=== PATIENT | female | born 1930 ===

== ENCOUNTER 2016-08-26 15:39 | Inpatient (IN) | payer MEDICARE, MEDICAID ==
[2016-08-26 15:40] VITALS: BMI 27.4
--- NOTE | 2016-08-26 16:14 | ED PDOC ---
HPI: General Adult Time Seen by Provider: 08/26/16 15:56 Chief Complaint (Nursing): Lower Extremity Problem/Injury Chief Complaint (Provider): leg swelling and redness History Per: Patient History/Exam Limitations: no limitations Additional Complaint(s): 86yo female of leg swelling and redness to bilateral legs for 1 week. Patient uses O2 at home. No fever. She has nausea but no vomit or chest pain. Taking Eliquis & Lasix PMD Jameszel Past Medical History Reviewed: Historical Data, Nursing Documentation, Vital Signs Vital Signs: Last Vital Signs Temp 98.1 F 08/28/16 08:07 Pulse 72 08/28/16 08:07 Resp 20 08/28/16 08:07 BP 148/68 08/28/16 08:07 Pulse Ox 99 08/28/16 08:07 - Medical History PMH: Anxiety, Asthma, Atrial Fibrillation, Bronchitis, CAD, Cardia Arrhythmia, COPD, Emphysema, Fractures (Left femur), HTN, Hyperthyroidism (subtotal thyroidectomy), Peripheral Edema, Pneumonia Denies: Arthritis, CHF, HIV, Hypercholesterolemia, Hypothyroidism, Chronic Kidney Disease, Rheumatoid Arthritis - Surgical History Surgical History: Appendectomy, Cholecystectomy, Pacemaker - Family History Family History: States: Unknown Family Hx - Home Medications Home Medications: Ambulatory Orders Medication Instructions Recorded Ammonium Lactate 12% [Lac-Hydrin 1 appl TOP BID 08/26/16 12% Lotion (225 g)] Apixaban [Eliquis] 2.5 mg PO BID 08/26/16 Brimonidine 0.15% [Alphagan P 1 drop LEFTEYE BID 08/26/16 0.15% Opht] Clotrimazole 1% [Lotrimin AF 1%] 1 appl TOP BID 08/26/16 Diclofenac Sodium [Voltaren] 1 appl TOP BID PRN 08/26/16 Dorzolamide 2% [Trusopt] 1 drop LEFTEYE TID 08/26/16 Fluticasone/Salmeterol 250/50 1 puff IH Q12H 08/26/16 [Advair Diskus 250/50] Folic Acid [Folic Acid] 1 mg PO DAILY 08/26/16 Furosemide [Lasix] 20 mg PO DAILY 08/26/16 Ipratropium 0.02% [Atrovent] 2.5 ml IH QID PRN 08/26/16 Levalbuterol Tartrate [Xopenex Hfa] 2 puff IH Q4H PRN 08/26/16 Levalbuterol [Xopenex] 3 ml IH TID PRN 08/26/16 Multivitamin with Minerals 1 tab PO DAILY 08/26/16 [Bee-Zee] Omeprazole [Omeprazole] 20 mg PO DAILY 08/26/16 Travoprost [Travatan Z] 1 drop LEFTEYE HS 08/26/16 Triamterene/Hydrochlorothiazid 1 cap PO DAILY 08/26/16 [Triamterene-Hctz 37.5-25 mg Cp] amLODIPine [Norvasc] 5 mg PO DAILY 08/26/16 traMADol/Acetaminophen [Ultracet 1 tab PO Q6H PRN 08/26/16 37.5/325 mg] - Allergies Allergies/Adverse Reactions: Allergies Allergy/AdvReac Type Severity Reaction Status Date / Time codeine Allergy DIZZINESS Verified 06/25/16 15:55 iodine Allergy SHORTNESS Verified 06/25/16 15:55 OF BREATH lidocaine Allergy RASH Verified 06/25/16 15:55 Sulfa (Sulfonamide Allergy RASH Verified 06/25/16 15:55 Antibiotics) levofloxacin [From Levaquin] AdvReac PALPITATION Verified 06/25/16 15:55 S anesthesia Allergy SHORTNESS Uncoded 06/25/16 15:55 OF BREATH Review of Systems ROS Statement: Except As Marked, All Systems Reviewed And Found Negative Constitutional: Negative for: Fever Cardiovascular: Negative for: Chest Pain Gastrointestinal: Positive for: Nausea. Negative for: Vomiting Physical Exam - Reviewed Nursing Documentation Reviewed: Yes Vital Signs Reviewed: Yes - Physical Exam Appears: Positive for: Well, Non-toxic, No Acute Distress Head Exam: Positive for: ATRAUMATIC, NORMAL INSPECTION, NORMOCEPHALIC Skin: Positive for: Warm, Dry Eye Exam: Positive for: EOMI, PERRL Cardiovascular/Chest: Positive for: Regular Rate, Rhythm Respiratory: Positive for: Wheezing (occasional). Negative for: Rales, Rhonchi Gastrointestinal/Abdominal: Positive for: Soft, Hernia. Negative for: Tenderness, Guarding, Rebound Extremity: Positive for: Other (Bilateral lower extremity erythema from knees to feet. +small 0.5cm wound with small amount of discharge with on lateral aspect of left martínez) Neurologic/Psych: Positive for: Alert, Oriented - Laboratory Results Result Diagrams: 08/27/16 06:05 08/27/16 06:05 - ECG O2 Sat by Pulse Oximetry: 99 (RA) Pulse Ox Interpretation: Normal - Radiology X-Ray: Interpreted by Me, Viewed By Me X-Ray Interpretation: No Acute Disease, COPD, Cardiomegaly Medical Decision Making Medical Decision Makin Impression bilateral leg cellulitis, stasis dermatitis plan -labs -reassess Disposition - Clinical Impression Clinical Impression: Bilateral lower leg cellulitis, COPD exacerbation - Patient ED Disposition Is Patient to be Admitted: Yes Discussed With : Jim Mock Doctor Will See Patient In The: ED Counseled Patient/Family Regarding: Studies Performed, Diagnosis - Disposition Disposition Time: 18:00 Condition: FAIR - Pt Status Changed To: Hospital Disposition Of: Inpatient - Admit Certification Admit to Inpatient:: After my assessment, the patient will require hospitalization for at least two midnights. This is because of the severity of symptoms shown, intensity of services needed, and/or the medical risk in this patient being treated as an outpatient. - POA Present On Arrival: Pressure Ulcer Location Of Wound: left lower leg Additional Comments - Additional Comments Additional Comments: Scribe Attestation: Documented by Ganga Nettles acting as a scribe for Cheri Armijo MD. Scribe Attestation: All medical record entries made by the Scribe were at my direction and personally dictated by me. I have reviewed the chart and agree that the record accurately reflects my personal performance of the history, physical exam, medical decision making, and the department course for this patient. I have also personally directed, reviewed, and agree with the discharge instructions and disposition.
[2016-08-26 16:50] LABS: BASO # 0.1 K/uL (0.0-0.2); EOS # 0.4 K/uL (0.0-0.7); EOS % 6.6 % (0.0-4.0); HEMATOCRIT 31.5 % (34.0-47.0); LYMPH # 0.7 K/uL (1.0-4.3); LYMPH % 10.7 % (20.0-40.0); MEAN CELL VOLUME 87.5 fl (81.0-99.0); MEAN CORPUSCULAR HEMOGLOBIN 26.6 pg (27.0-31.0); MEAN CORPUSCULAR HGB CONC 30.4 g/dL (33.0-37.0); MEAN PLATELET VOLUME 8.8 fl (7.2-11.7); MONO # 1.1 K/uL (0.0-0.8); MONO % 17.7 % (0.0-10.0); RED CELL DISTRIBUTION WIDTH 16.1 % (11.5-14.5); WHITE BLOOD COUNT 6.3 K/uL (4.8-10.8)
[2016-08-26 17:00] LABS: BLOOD UREA NITROGEN 12 mg/dl (7-17); CHLORIDE 82 mmol/L (98-107); GFR AFRICAN-AMERICAN > 60; GLUCOSE,RANDOM 91 mg/dL (65-105); POTASSIUM 3.4 MMOL/L (3.6-5.0); SODIUM 141 mmol/l (132-148)
[2016-08-26 17:13] LABS: CARBON DIOXIDE 52 mmol/L (22-30)
[2016-08-26 17:49] LABS: ABG ALLEN TEST YES; ARTERIAL BLOOD GAS HCO3 50.7 mmol/L (21-28); ARTERIAL BLOOD GAS O2 CAPACITY 12.9 mL/dL (16-24); ARTERIAL BLOOD GAS O2 CONTENT 12.8 ML/dL (15-23); ARTERIAL BLOOD GAS PH 7.36 (7.35-7.45); ARTERIAL BLOOD GAS PO2 92 mm/Hg (80-100); ARTERIAL BLOOD HGB O2 SAT 94.4 % (95.0-98.0); CARBOXYHEMOGLOBIN 1.9 % (0.5-1.5); METHEMOGLOBIN 2.6 % (0.0-3.0)
[2016-08-26] MEDS ORDERED: Albuterol-Ipratrop 3 mg / 0.5 (3 ml) UD INH STA (17:53)
[2016-08-26] MEDS ORDERED: Vancomycin 1 g Inj ONE (18:03)
[2016-08-26] MEDS ORDERED: Albuterol-Ipratrop 3 mg / 0.5 (3 ml) UD ONE (18:03)
--- NOTE | 2016-08-26 18:43 | CP.PCM.HP ---
History of Present Illness - History of Present Illness History of Present Illness: 86 yo female with history of COPD, AFib with pacemaker, CAD, HTN, GERD and Chronic Leg Edema secondary to venous stasis came in because of marked swelling and intense redness of both legs (look like cooked lobster) since one week ago. Admitted some discomfort because of the swelling. Denied fever or chills. Also denied chest pain or SOB although she reported feeling SOB at home frequently which was her norm or baseline. Present on Admission - Present on Admission Any Indicators Present on Admission: No History of DVT/PE: No History of Uncontrolled Diabetes: No Urinary Catheter: No Decubitus Ulcer Present: No Review of Systems - Review of Systems All systems: reviewed and no additional remarkable complaints except (aside from those mentioned above, 12 point system review were negative by me) Past Patient History - Infectious Disease Hx of Infectious Diseases: None - Tetanus Immunizations Tetanus Immunization: Unknown - Past Medical History & Family History Past Medical History?: Yes - Past Social History Smoking Status: Never Smoked Chewing Tobacco Use: No Cigar Use: No Alcohol: None Drugs: Denies Home Situation {Lives}: Alone - CARDIAC Hx Atrial Fibrillation: Yes Hx Cardia Arrhythmia: Yes Hx Congestive Heart Failure: No Hx Hypercholesterolemia: No Hx Hypertension: Yes Hx Pacemaker: Yes Hx Peripheral Edema: Yes - PULMONARY Hx Asthma: Yes Hx Bronchitis: Yes Hx Chronic Obstructive Pulmonary Disease (COPD): Yes Hx Emphysema: Yes Hx Pneumonia: Yes - NEUROLOGICAL Hx Neurological Disorder: No - HEENT Hx Glaucoma: Yes Other/Comment: Hx Retina surgery Right Eye - RENAL Hx Chronic Kidney Disease: No - ENDOCRINE/METABOLIC Hx Hyperthyroidism: Yes (subtotal thyroidectomy) Hx Hypothyroidism: No - HEMATOLOGICAL/ONCOLOGICAL Hx Human Immunodeficiency Virus (HIV): No - INTEGUMENTARY Hx Cellulitis: Yes Other/Comment: Chronic venous insufficiency of both lower extremities with ulceration in the right pretibial area - MUSCULOSKELETAL/RHEUMATOLOGICAL Hx Arthritis: No Hx Fractures: Yes (Left femur) Hx Rheumatoid Arthritis: No - GASTROINTESTINAL Hx Gastroesophageal Reflux: Yes - GENITOURINARY/GYNECOLOGICAL Hx Genitourinary Disorders: No - PSYCHIATRIC Hx Anxiety: Yes - SURGICAL HISTORY Hx Appendectomy: Yes Hx Cholecystectomy: Yes - ANESTHESIA Hx Anesthesia: Yes Hx Anesthesia Reactions: Yes Hx Malignant Hyperthermia: No Meds Allergies/Adverse Reactions: Allergies Allergy/AdvReac Type Severity Reaction Status Date / Time codeine Allergy DIZZINESS Verified 06/25/16 15:55 iodine Allergy SHORTNESS Verified 06/25/16 15:55 OF BREATH lidocaine Allergy RASH Verified 06/25/16 15:55 Sulfa (Sulfonamide Allergy RASH Verified 06/25/16 15:55 Antibiotics) levofloxacin [From Levaquin] AdvReac PALPITATION Verified 06/25/16 15:55 S anesthesia Allergy SHORTNESS Uncoded 06/25/16 15:55 OF BREATH Physical Exam - Constitutional Appears: No Acute Distress - Head Exam Head Exam: ATRAUMATIC - Eye Exam Eye Exam: absent: Scleral icterus - ENT Exam ENT Exam: Mucous Membranes Moist - Neck Exam Neck exam: Negative for: Meningismus - Respiratory Exam Respiratory Exam: Decreased Breath Sounds, Rales. absent: Wheezes, Respiratory Distress - Cardiovascular Exam Cardiovascular Exam: REGULAR RHYTHM, +S1, +S2 - GI/Abdominal Exam GI & Abdominal Exam: Soft. absent: Tenderness - Rectal Exam Rectal Exam: Deferred - Extremities Exam Extremities exam: Negative for: normal inspection (markedly swollen and very intensely red legs, non-tender and warm to touch) - Back Exam Back exam: absent: tenderness - Neurological Exam Neurological exam: Alert, Oriented x3 - Psychiatric Exam Psychiatric exam: Normal Affect - Skin Skin Exam: Dry, Erythema, Intact, Warm Results - Vital Signs Recent Vital Signs: Last Vital Signs Temp 98.7 F 08/26/16 15:42 Pulse 72 08/26/16 15:42 Resp 20 08/26/16 15:42 BP 148/72 08/26/16 17:28 Pulse Ox 99 08/26/16 16:19 - Labs Result Diagrams: 08/26/16 16:30 08/26/16 16:30 Assessment & Plan (1) Cellulitis of lower extremity Status: Acute Comment: admit in telemetry. blood culture x 2. Zosyn 3.375gm IV q 6hrs. redness on both legs probably secondary to hypersensitivity since eosinophil suddenly went up from 0.7 in 06/16/2016 to 6.6 today. repeat CBC with diferrential in am (2) Hypercarbia Status: Acute Comment: continue Bipap on low setting. repeat ABG in am (3) COPD (chronic obstructive pulmonary disease) Status: Chronic Priority: High Comment: stable. resume home meds. pulmonary consult with Dr Mack (4) Eosinophilia Status: Acute Comment: as discussed above the extreme redness of both legs probably secondary to hypersensitivity from exposure since eosinophil shoot up to 6.6. received 125mg of SoluMedrol IV in the ER. continue SoluMedrol 40mg IV daily (5) DVT prophylaxis Status: Acute Priority: Medium Comment: on Apixaban for AFib
[2016-08-26 18:53] LABS: PARTIAL THROMBOPLASTIN TIME 32.9 SECONDS (23.3-32.5)
[2016-08-26] MEDS ORDERED: methylPREDNISolone 40 MG in Sodium Chloride 0.9% 50 ML IV STA (19:26)
[2016-08-26] MEDS ORDERED: TRAMADOL PO PRN (19:32)
[2016-08-26] MEDS ORDERED: Patient's Own Med (Levalbuterol Tartrate [Xopenex Hfa] 2 PUFF) IH PRN (19:32)
[2016-08-26] MEDS ORDERED: ACETAMINOPHEN PO PRN (19:32)
[2016-08-26] MEDS ORDERED: Patient's Own Med (Travoprost [Travatan Z] 1 DROP) LEFTEYE SCH (22:00)
[2016-08-26 23:02] LABS: ABG ALLEN TEST YES; ARTERIAL BLOOD GAS HCO3 52.1 mmol/L (21-28); ARTERIAL BLOOD GAS O2 CAPACITY 13.5 mL/dL (16-24); ARTERIAL BLOOD GAS O2 CONTENT 13.5 ML/dL (15-23); ARTERIAL BLOOD GAS PH 7.39 (7.35-7.45); ARTERIAL BLOOD GAS PO2 104 mm/Hg (80-100); ARTERIAL BLOOD HGB O2 SAT 95.9 % (95.0-98.0); CARBOXYHEMOGLOBIN 2.5 % (0.5-1.5); HHB 0.2 % (0.0-5.0); METHEMOGLOBIN 1.4 % (0.0-3.0)
[2016-08-27] MEDS: Ampicillin/Sulbactam 1.5 GM in Sodium Chloride 0.9% 100 ML IVPB SCH ×5 (00:39→22:45)
[2016-08-27 04:50] LABS: ABG ALLEN TEST YES; ARTERIAL BLOOD GAS HCO3 51.8 mmol/L (21-28); ARTERIAL BLOOD GAS MODE BiPAP; ARTERIAL BLOOD GAS O2 CAPACITY 13.2 mL/dL (16-24); ARTERIAL BLOOD GAS O2 CONTENT 13.1 ML/dL (15-23); ARTERIAL BLOOD GAS PH 7.42 (7.35-7.45); ARTERIAL BLOOD GAS PO2 107 mm/Hg (80-100); ARTERIAL BLOOD HGB O2 SAT 95.8 % (95.0-98.0); HHB 0.7 % (0.0-5.0); METHEMOGLOBIN 1.4 % (0.0-3.0)
[2016-08-27 06:39] LABS: BASO % 0.5 % (0.0-2.0); EOS % 0.2 % (0.0-4.0); HEMATOCRIT 30.4 % (34.0-47.0); LYMPH # 0.3 K/uL (1.0-4.3); LYMPH % 12.2 % (20.0-40.0); MEAN CELL VOLUME 86.1 fl (81.0-99.0); MEAN CORPUSCULAR HEMOGLOBIN 26.1 pg (27.0-31.0); MEAN CORPUSCULAR HGB CONC 30.3 g/dL (33.0-37.0); MEAN PLATELET VOLUME 8.6 fl (7.2-11.7); MONO # 0.1 K/uL (0.0-0.8); MONO % 2.3 % (0.0-10.0); NEUT % 84.8 % (50.0-75.0); NRBC % 0.1 % (0.0-0.0); RED CELL DISTRIBUTION WIDTH 16.2 % (11.5-14.5); WHITE BLOOD COUNT 2.4 K/uL (4.8-10.8)
[2016-08-27] MEDS: Fluticasone-Salmeterol 250-50mcg Diskus IH SCH ×3 (06:44→22:44)
[2016-08-27 06:49] LABS: BLOOD UREA NITROGEN 13 mg/dl (7-17); CALCIUM 8.4 mg/dL (8.4-10.2); CHLORIDE 84 mmol/L (98-107); GFR AFRICAN-AMERICAN > 60; GLUCOSE,RANDOM 125 mg/dL (65-105); POTASSIUM 3.7 MMOL/L (3.6-5.0); SODIUM 143 mmol/l (132-148)
[2016-08-27 07:07] LABS: CARBON DIOXIDE 48 mmol/L (22-30)
[2016-08-27] MEDS: Ipratropium 0.02% Inhal Soln (0.5 mg/2.5 ml) UD IH PRN ×2 (08:47→18:12)
[2016-08-27] MEDS: Levalbuterol 1.25 MG/3 ML Inhal Soln UD IH PRN ×2 (08:47→18:12)
[2016-08-27] MEDS ORDERED: MULTIVITAMIN WITH MINERALS PO SCH (09:00)
[2016-08-27] MEDS ORDERED: methylPREDNISolone 40 MG in Sodium Chloride 0.9% 50 ML IV SCH (09:00)
[2016-08-27] MEDS ORDERED: hydroCHLOROthiazide-Triamterene 25 mg-37.5 mg Cap UD PO SCH (09:00)
[2016-08-27] MEDS ORDERED: Patient's Own Med (Brimonidine 0.15% [Alphagan P 0.15% Opht] 1 DROP) LEFTEYE SCH (09:00)
--- NOTE | 2016-08-27 09:17 | US ---
PROCEDURE: Bilateral lower extremity venous duplex Doppler. HISTORY: bilateral leg swelling COMPARISON: None available. TECHNIQUE: Bilateral common femoral, superficial femoral, popliteal and posterior tibial veins were evaluated. Flow was assessed with color Doppler, compressibility, assessment of phasic flow and augmentation response. FINDINGS: COMMON FEMORAL VEIN: Right CFV: Unremarkable. Left CFV: Unremarkable. SUPERFICIAL FEMORAL VEIN: Right SFV: Unremarkable. Left SFV: Unremarkable. POPLITEAL VEIN: Right Popliteal: Unremarkable. Left Popliteal: Unremarkable. POSTERIOR TIBIAL VEIN: Right PTV: Unremarkable. Left PTV: Unremarkable. OTHER FINDINGS: None. IMPRESSION: No evidence of deep venous thrombosis.
[2016-08-27] MEDS: Dorzolamide 2% Ophth Soln OU SCH ×3 (10:12→17:15)
--- NOTE | 2016-08-27 10:12 | RAD ---
HISTORY: Shortness of breath COMPARISON: 06/16/2016 FINDINGS: LUNGS: There is mild pulmonary venous congestion. PLEURA: No significant pleural effusion identified, no pneumothorax apparent. CARDIOVASCULAR: There is persistent severe cardiomegaly. There is stable position of left-sided unipolar transvenous permanent pacing device. OSSEOUS STRUCTURES: No significant abnormalities. VISUALIZED UPPER ABDOMEN: Normal. OTHER FINDINGS: None. IMPRESSION: No active pulmonary disease. Persistent severe cardiomegaly and mild pulmonary venous congestion.
[2016-08-27] MEDS: Brimonidine 0.2% 50 DROP/5 ML BOTTLE OS SCH ×2 (10:13→17:14)
[2016-08-27] MEDS: Multivitamin With Minerals Tab PO SCH (10:17)
[2016-08-27] MEDS: Pantoprazole 40 mg EC Tab PO SCH (10:18)
--- NOTE | 2016-08-27 14:05 | CP.PCM.CON ---
History of Present Illness - History of Present Illness History of Present Illness: This patient is well-known to me from the outpatient setting as well as prior hospitalizations. 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 She has been found to be hypercapnic chronically and on her last hospitalization she was placed on NIPPV using BiPAP ventilator. She was discharged to subacute rehabilitation and was sent home from there with a BiPAP unit for home use along with her home oxygen. She presented to the emergency room now with increased swelling of both lower extremities and significant erythema suggesting cellulitis. Workup she was found to have a PaCO2 of over 100 although she was well oxygenated and had a pH of 7.36. Her chest x-ray at this time shows no acute infiltrates. She has been placed on BiPAP ventilation in the hospital and feels improved when seen today. She denied any chest pain or productive cough at home. She was unaware of fevers and denied chills. There was no history of hemoptysis. Past Patient History - Infectious Disease Hx of Infectious Diseases: None - Tetanus Immunizations Tetanus Immunization: Unknown - Past Medical History & Family History Past Medical History?: Yes Pertinent Family History: Lung cancer, GI malignancy. - Past Social History Smoking Status: Never Smoked Chewing Tobacco Use: No Cigar Use: No Alcohol: None Drugs: Denies Home Situation {Lives}: Alone - CARDIAC Hx Cardiac Disorders: Yes Hx Atrial Fibrillation: Yes Hx Hypertension: Yes Hx Pacemaker: Yes Hx Peripheral Edema: Yes - PULMONARY Hx Respiratory Disorders: Yes Hx Asthma: Yes Hx Bronchitis: Yes Hx Chronic Obstructive Pulmonary Disease (COPD): Yes Hx Pneumonia: Yes - NEUROLOGICAL Hx Neurological Disorder: No - HEENT Hx HEENT Problems: Yes Hx Glaucoma: Yes Other/Comment: Hx Retina surgery Right Eye - RENAL Hx Chronic Kidney Disease: No - ENDOCRINE/METABOLIC Hx Endocrine Disorders: Yes Hx Hyperthyroidism: Yes - HEMATOLOGICAL/ONCOLOGICAL Hx Blood Disorders: No Hx Human Immunodeficiency Virus (HIV): No - INTEGUMENTARY Hx Dermatological Problems: Yes Hx Cellulitis: Yes Other/Comment: Chronic venous insufficiency of both lower extremities with ulceration in the right pretibial area - MUSCULOSKELETAL/RHEUMATOLOGICAL Hx Musculoskeletal Disorders: Yes Hx Falls: Yes Hx Fractures: Yes - GASTROINTESTINAL Hx Gastrointestinal Disorders: Yes Hx Gastroesophageal Reflux: Yes - GENITOURINARY/GYNECOLOGICAL Hx Genitourinary Disorders: No - PSYCHIATRIC Hx Psychophysiologic Disorder: Yes Hx Anxiety: Yes Hx Substance Use: No - SURGICAL HISTORY Hx Surgeries: Yes Hx Appendectomy: Yes Hx Cholecystectomy: Yes - ANESTHESIA Hx Anesthesia: Yes Hx Anesthesia Reactions: Yes Hx Malignant Hyperthermia: No Meds Allergies/Adverse Reactions: Allergies Allergy/AdvReac Type Severity Reaction Status Date / Time codeine Allergy DIZZINESS Verified 06/25/16 15:55 iodine Allergy SHORTNESS Verified 06/25/16 15:55 OF BREATH lidocaine Allergy RASH Verified 06/25/16 15:55 Sulfa (Sulfonamide Allergy RASH Verified 06/25/16 15:55 Antibiotics) levofloxacin [From Levaquin] AdvReac PALPITATION Verified 06/25/16 15:55 S anesthesia Allergy SHORTNESS Uncoded 06/25/16 15:55 OF BREATH - Medications Medications: Current Medications Acetaminophen (Tylenol 325mg Tab) 650 mg PO Q6 PRN PRN Reason: Pain, moderate (4-7) Amlodipine Besylate (Norvasc) 5 mg PO DAILY [facility] Last Admin: 08/27/16 10:18 Dose: 5 mg Apixaban (Eliquis) 2.5 mg PO BID [facility] PRN Reason: Protocol Last Admin: 08/27/16 10:21 Dose: 2.5 mg Brimonidine Tartrate (Alphagan 0.2% Opht) 1 drop OS BID [facility] Last Admin: 08/27/16 10:13 Dose: 1 unit Dorzolamide HCl (Trusopt) 1 drop OU TID [facility] Last Admin: 08/27/16 10:12 Dose: 1 unit Folic Acid (Folic Acid) 1 mg PO DAILY [facility] Last Admin: 08/27/16 10:21 Dose: 1 mg Furosemide (Lasix) 20 mg PO DAILY [facility] Last Admin: 08/27/16 10:19 Dose: 20 mg Methylprednisolone 40 mg/ (Sodium Chloride) 50 mls @ 100 mls/hr IV DAILY [facility] Last Admin: 08/27/16 10:14 Dose: 100 mls/hr Ampicillin Sodium/Sulbactam (Sodium 1.5 gm/ Sodium Chloride) 100 mls @ 100 mls/ hr IVPB Q6 [facility] Last Admin: 08/27/16 10:14 Dose: 100 mls/hr Ipratropium [place] (Atrovent) 0.5 mg IH QID PRN PRN Reason: Shortness of Breath Last Admin: 08/27/16 08:47 Dose: 0.5 mg Latanoprost (Xalatan Opht) 1 drop OS [facility] Levalbuterol HCl (Xopenex) 1.25 mg IH TID PRN PRN Reason: Shortness of Breath Last Admin: 08/27/16 08:47 Dose: 1.25 mg Multivitamins/Minerals (Therapeutic-M Tab) 1 tab PO DAILY [facility] Last Admin: 08/27/16 10:17 Dose: 1 tab Pantoprazole Sodium (Protonix Ec Tab) 40 mg PO DAILY [facility] Last Admin: 08/27/16 10:18 Dose: 40 mg Fluticasone/Salmeterol (Advair Diskus 250/50) 1 puff IH Q12H [facility] Last Admin: 08/27/16 06:44 Dose: Not Given Tramadol HCl (Ultram) 50 mg PO Q6 PRN PRN Reason: Pain, moderate (4-7) Triamterene/HCTZ (Dyazide 25 Mg-37.5 Mg) 1 cap PO DAILY [facility] Last Admin: 08/27/16 10:22 Dose: 1 cap Physical Exam - Additional Findings Additional findings: Bilateral lower extremity edema++ and erythema with increased warmth. No open wounds on either LE, no weeping drainage. No cyanosis or clubbing. No palpable lymphadenopathy. Pharynx is pink and moist w/o exudate. Neck is supple and trachea is midline. No visible JVD, +scar from prior excision of cervical LN. No dullness on chest percussion, increased AP diameter of thorax. Breath sounds are present bilaterally, diminished. E phase is prolonged with few E wheezes bilaterally. Dry lower lobe rales, few, present posteriorly. Heart sounds are distant and rhythm regular. Abdomen is soft and non-tender with NABS. Results - Vital Signs Recent Vital Signs: Last Vital Signs Temp 99.4 F 08/27/16 12:14 Pulse 72 08/27/16 12:14 Resp 18 08/27/16 12:14 BP 130/57 L 08/27/16 12:14 Pulse Ox 96 08/27/16 12:14 - Labs Result Diagrams: 08/31/16 06:00 08/31/16 06:00 Labs: Laboratory Results - last 24 hr 08/26/16 08/27/16 08/27/16 22:45 04:50 06:05 WBC 2.4 L D RBC 3.54 L Hgb 9.2 L Hct 30.4 L MCV 86.1 MCH 26.1 L MCHC 30.3 L RDW 16.2 H Plt Count 197 MPV 8.6 Neut % (Auto) 84.8 H Lymph % (Auto) 12.2 L [place] % (Auto) 2.3 Eos % (Auto) 0.2 Baso % (Auto) 0.5 Neut # 2.0 Lymph # 0.3 L [place] # 0.1 Eos # 0.0 Baso # 0.0 pCO2 108 H* 99 H* pO2 104 H 107 H HCO3 52.1 H* 51.8 H* ABG pH 7.39 7.42 ABG Total CO2 68.7 H 67.2 H ABG O2 Saturation 99.8 H 99.3 H ABG O2 Content 13.5 L 13.1 L ABG Base Excess 34.8 H 34.5 H ABG Hemoglobin 9.9 L 9.6 L ABG Carboxyhemoglobin 2.5 H 2.0 H POC ABG HHb (Measured) 0.2 0.7 ABG Methemoglobin 1.4 1.4 ABG O2 Capacity 13.5 L 13.2 L Gilberto Test Yes Yes A-a O2 Difference 46.0 54.0 Hgb O2 Saturation 95.9 95.8 Vent Mode Bipap FiO2 40.0 40.0 Inspiratory BiPAP 10 18 Expiratory BiPAP 5 8 Blood Gas Comments Avea bipap i/10 e/5 Crit Value Called To Josue romeo Crit Value Called By 162 Mj Crit Value Read Back Y Y Blood Gas Notified Time 2300 450 Sodium 143 Potassium 3.7 Chloride 84 L Carbon Dioxide 48 H* Anion Gap 15 BUN 13 Creatinine 0.8 Est GFR ( Amer) > 60 Est GFR (Non-Af Amer) > 60 Random Glucose 125 H Calcium 8.4 Assessment & Plan (1) Asthma exacerbation Status: Acute Priority: High (2) COPD exacerbation Status: Acute Priority: High (3) Acute and chronic respiratory failure with hypercapnia Status: Acute Priority: High (4) Bilateral lower leg cellulitis Status: Acute Priority: High (5) Pulmonary hypertension Status: Chronic Priority: High (6) Venous insufficiency of both lower extremities Status: Chronic Priority: Medium (7) Glaucoma Status: Chronic Priority: Medium - Assessment and Plan (Free Text) Plan: NIPPV using BiPAP ventilator with mask. Supplemental oxygen as needed. Aerosol therapy. Parenteral corticosteroids. Antibiotics. Consider adding acetazolamide. Monitor electrolytes and renal function. - Date & Time Date: 08/27/16 Time: 14:05
--- NOTE | 2016-08-27 14:24 | CP.PCM.PN ---
Subjective - Date & Time of Evaluation Date of Evaluation: 08/27/16 Time of Evaluation: 13:00 - Subjective Subjective: Pt seen and examined. Claimed she felt fine except for the redness and swelling of her legs. Objective - Vital Signs/Intake and Output Vital Signs (last 24 hours): Temp Pulse Resp BP Pulse Ox 99.4 F 72 18 130/57 L 96 08/27/16 12:14 08/27/16 12:14 08/27/16 12:14 08/27/16 12:14 08/27/16 12:14 - Medications Medications: Current Medications Acetaminophen (Tylenol 325mg Tab) 650 mg PO Q6 PRN PRN Reason: Pain, moderate (4-7) Amlodipine Besylate (Norvasc) 5 mg PO DAILY [facility] Last Admin: 08/27/16 10:18 Dose: 5 mg Apixaban (Eliquis) 2.5 mg PO BID [facility] PRN Reason: Protocol Last Admin: 08/27/16 10:21 Dose: 2.5 mg Brimonidine Tartrate (Alphagan 0.2% Opht) 1 drop OS BID [facility] Last Admin: 08/27/16 10:13 Dose: 1 unit Dorzolamide HCl (Trusopt) 1 drop OU TID [facility] Last Admin: 08/27/16 10:12 Dose: 1 unit Folic Acid (Folic Acid) 1 mg PO DAILY [facility] Last Admin: 08/27/16 10:21 Dose: 1 mg Furosemide (Lasix) 20 mg PO DAILY [facility] Last Admin: 08/27/16 10:19 Dose: 20 mg Methylprednisolone 40 mg/ (Sodium Chloride) 50 mls @ 100 mls/hr IV DAILY [facility] Last Admin: 08/27/16 10:14 Dose: 100 mls/hr Ampicillin Sodium/Sulbactam (Sodium 1.5 gm/ Sodium Chloride) 100 mls @ 100 mls/ hr IVPB Q6 [facility] Last Admin: 08/27/16 10:14 Dose: 100 mls/hr Ipratropium [place] (Atrovent) 0.5 mg IH QID PRN PRN Reason: Shortness of Breath Last Admin: 08/27/16 08:47 Dose: 0.5 mg Latanoprost (Xalatan Opht) 1 drop OS [facility] Levalbuterol HCl (Xopenex) 1.25 mg IH TID PRN PRN Reason: Shortness of Breath Last Admin: 08/27/16 08:47 Dose: 1.25 mg Multivitamins/Minerals (Therapeutic-M Tab) 1 tab PO DAILY [facility] Last Admin: 08/27/16 10:17 Dose: 1 tab Pantoprazole Sodium (Protonix Ec Tab) 40 mg PO DAILY [facility] Last Admin: 08/27/16 10:18 Dose: 40 mg Fluticasone/Salmeterol (Advair Diskus 250/50) 1 puff IH Q12H [facility] Last Admin: 08/27/16 06:44 Dose: Not Given Tramadol HCl (Ultram) 50 mg PO Q6 PRN PRN Reason: Pain, moderate (4-7) Triamterene/HCTZ (Dyazide 25 Mg-37.5 Mg) 1 cap PO DAILY [facility] Last Admin: 08/27/16 10:22 Dose: 1 cap - Labs Labs: 08/27/16 06:05 08/27/16 06:05 PT 12.0 SECONDS (9.6-11.2) H 08/26/16 16:30 INR 1.15 (0.92-1.08) H 08/26/16 16:30 APTT 32.9 SECONDS (23.3-32.5) H 08/26/16 16:30 - Constitutional Appears: No Acute Distress - Head Exam Head Exam: absent: ATRAUMATIC - Eye Exam Eye Exam: absent: Scleral icterus - ENT Exam ENT Exam: Mucous Membranes Moist - Neck Exam Neck Exam: absent: Meningismus - Respiratory Exam Respiratory Exam: Decreased Breath Sounds, Rales. absent: Wheezes, Respiratory Distress - Cardiovascular Exam Cardiovascular Exam: REGULAR RHYTHM, +S1, +S2 - GI/Abdominal Exam GI & Abdominal Exam: Soft. absent: Tenderness - Rectal Exam Rectal Exam: Deferred - Extremities Exam Extremities Exam: Pedal Edema (swollen and red). absent: Calf Tenderness - Neurological Exam Neurological Exam: Alert, Oriented x3 - Psychiatric Exam Psychiatric exam: Normal Affect - Skin Skin Exam: Dry, Erythema, Intact, Warm Assessment and Plan (1) Cellulitis of lower extremity Status: Acute (2) Hypercarbia Status: Acute (3) COPD (chronic obstructive pulmonary disease) Status: Chronic (4) Eosinophilia Status: Acute (5) DVT prophylaxis Status: Acute - Assessment and Plan (Free Text) Plan: 86 yo female with history of COPD, AFib with pacemaker, CAD, HTN, GERD and Chronic Leg Edema secondary to venous stasis came in because of marked swelling and intense redness of both legs (look like red lobster). (1) Cellulitis of lower extremity blood culture x 2 pending Zosyn 3.375gm IV q 6hrs instead of Vanco because of its association with red men syndrome redness on both legs probably secondary to hypersensitivity since eosinophil suddenly went up from 0.7 in 06/16/2016 to 6.6 today. repeat CBC with diferrential in am (2) Hypercarbia PCO2 down to 99 continue Bipap on low setting. (3) COPD (chronic obstructive pulmonary disease) stable. resume home meds. pulmonary consult with Dr Mack (4) Eosinophilia resolved, now PCO2 just below 100 continue SoluMedrol 40mg IV daily (5) DVT prophylaxis on Apixaban for AFib
[2016-08-27] MEDS ORDERED: Vitamin A/D oint 60G TP PRN (17:10)
--- NOTE | 2016-08-27 17:32 | CARD ---
APPROVED REPORT EXAM: Two-dimensional and M-mode echocardiogram with Doppler and color Doppler. Other Information Quality : GoodRhythm : Pacemaker INDICATION Elevated Pro BNP Surgery/Intervention Pacemaker: 2D DIMENSIONS IVSd1.54 (0.7-1.1cm)LVDd3.82 (3.9-5.9cm) LVOT Diameter1.97 (1.8-2.4cm)PWd1.24 (0.7-1.1cm) IVSs1.62 (0.8-1.2cm)LVDs2.42 (2.5-4.0cm) FS (%) 36.7 %PWs1.36 (0.8-1.2cm) LVEF (%)55.0 (>50%) M-Mode DIMENSIONS Left Atrium (MM)6.25 (2.5-4.0cm)IVSd1.40 (0.7-1.1cm) Aortic Root3.14 (2.2-3.7cm)LVDd4.58 (4.0-5.6cm) Aortic Cusp Exc.1.75 (1.5-2.0cm)PWd1.19 (0.7-1.1cm) IVSs2.31 cmFS (%) 41 % LVDs2.69 (2.0-3.8cm)PWs1.57 cm Aortic Valve AI P 1/2 [id number] Mitral Valve E/A ratio0.0 TDI E/Lateral E'0.0E/Medial E'0.0 Tricuspid Valve TR Peak [id number] [id number] Peak Gr.42mmHg [id number] LEFT VENTRICLE The left ventricle is normal size. There is moderate concentric left ventricular hypertrophy. The left ventricular function is normal. The left ventricular ejection fraction is within the normal range. There is normal LV segmental wall motion. patient in A Fib RIGHT VENTRICLE The right ventricle is mildly dilated. The right ventricle is moderately hypertrophied. The right ventricular systolic function is normal. There is a pacemaker lead in the right ventricle. ATRIA The left atrium is severely dilated. The right atrium is moderately dilated. The atrial septum is aneurysmal. AORTIC VALVE The aortic valve is moderately thickened. There is moderate aortic regurgitation. There is no aortic valvular stenosis. MITRAL VALVE The mitral valve is moderately thickened. There is no mitral valve stenosis. Mitral regurgitation is severe. TRICUSPID VALVE The tricuspid valve is normal in structure There is moderate to severe tricuspid regurgitation. There is moderate pulmonary hypertension. PULMONIC VALVE The pulmonary valve is normal in structure There is moderate pulmonic valvular regurgitation. GREAT VESSELS The aortic root is normal in size. The IVC is normal in size and collapses >50% with inspiration. PERICARDIAL EFFUSION The pericardium appears normal. <Conclusion> The left ventricle is normal size. There is moderate concentric left ventricular hypertrophy. The left ventricular function is normal. The left ventricular ejection fraction is within the normal range. There is moderate aortic regurgitation. Mitral regurgitation is severe. There is moderate to severe tricuspid regurgitation. There is moderate pulmonary hypertension.
--- NOTE | 2016-08-27 18:29 | CARD ---
APPROVED REPORT EKG Measurement Heart [id number] <Conclusion> Ventricular paced rhythm Underlying rhythm is A Fib Abnormal ECG
[2016-08-27] MEDS: Latanoprost 0.005% Opht SOUTION OS SCH (22:44)
[2016-08-28] MEDS: Ampicillin/Sulbactam 1.5 GM in Sodium Chloride 0.9% 100 ML IVPB SCH ×4 (04:34→22:47)
[2016-08-28] MEDS: Levalbuterol 1.25 MG/3 ML Inhal Soln UD IH SCH ×3 (08:21→23:57)
--- NOTE | 2016-08-28 08:21 | CP.PCM.PN ---
Subjective - Date & Time of Evaluation Date of Evaluation: 08/28/16 Time of Evaluation: 08:21 - Subjective Subjective: More comfortable today. Vital signs are stable. Using BiPAP overnight. Erythema and edema of LE's is less. No audible wheezes heard. Breath sounds are decreased bilaterally. Maintain present medical regimen. Objective - Vital Signs/Intake and Output Vital Signs (last 24 hours): Temp Pulse Resp BP Pulse Ox 98.1 F 72 20 148/68 99 08/28/16 08:07 08/28/16 08:07 08/28/16 08:07 08/28/16 08:07 08/28/16 08:07 - Medications Medications: Current Medications Acetaminophen (Tylenol 325mg Tab) 650 mg PO Q6 PRN PRN Reason: Pain, moderate (4-7) Acetazolamide (Diamox 250 Mg Tab) 250 mg PO DAILY [facility] Amlodipine Besylate (Norvasc) 5 mg PO DAILY [facility] Last Admin: 08/27/16 10:18 Dose: 5 mg Apixaban (Eliquis) 2.5 mg PO BID [facility] PRN Reason: Protocol Last Admin: 08/27/16 17:15 Dose: 2.5 mg Brimonidine Tartrate (Alphagan 0.2% Opht) 1 drop OS BID [facility] Last Admin: 08/27/16 17:14 Dose: 1 unit Dorzolamide HCl (Trusopt) 1 drop OU TID [facility] Last Admin: 08/27/16 17:15 Dose: 1 drop Folic Acid (Folic Acid) 1 mg PO DAILY [facility] Last Admin: 08/27/16 10:21 Dose: 1 mg Furosemide (Lasix) 20 mg PO DAILY [facility] Last Admin: 08/27/16 10:19 Dose: 20 mg Ampicillin Sodium/Sulbactam (Sodium 1.5 gm/ Sodium Chloride) 100 mls @ 100 mls/ hr IVPB Q6 [facility] Last Admin: 08/28/16 04:34 Dose: 100 mls/hr Methylprednisolone 30 mg/ (Sodium Chloride) 50 mls @ 100 mls/hr IV DAILY [facility] Latanoprost (Xalatan Opht) 1 drop OS HS [facility] Last Admin: 08/27/16 22:44 Dose: 1 drop Levalbuterol HCl (Xopenex) 1.25 mg IH RQ8 [facility] Multivitamins/Minerals (Therapeutic-M Tab) 1 tab PO DAILY [facility] Last Admin: 08/27/16 10:17 Dose: 1 tab Pantoprazole Sodium (Protonix Ec Tab) 40 mg PO DAILY [facility] Last Admin: 08/27/16 10:18 Dose: 40 mg Fluticasone/Salmeterol (Advair Diskus 250/50) 1 puff IH Q12H [facility] Last Admin: 08/27/16 22:44 Dose: 1 puff Tramadol HCl (Ultram) 50 mg PO Q6 PRN PRN Reason: Pain, moderate (4-7) Vitamin A (Vitamin A&D) 1 applic TP Q8 PRN PRN Reason: Itching / Pruritus - Labs Labs: 08/27/16 06:05 08/27/16 06:05 PT 12.0 SECONDS (9.6-11.2) H 08/26/16 16:30 INR 1.15 (0.92-1.08) H 08/26/16 16:30 APTT 32.9 SECONDS (23.3-32.5) H 08/26/16 16:30
[2016-08-28] MEDS: Ipratropium 0.02% Inhal Soln (0.5 mg/2.5 ml) UD IH PRN (08:22)
[2016-08-28 08:54] LABS: ABG ALLEN TEST YES; ARTERIAL BLOOD GAS HCO3 52.9 mmol/L (21-28); ARTERIAL BLOOD GAS O2 CAPACITY 13.2 mL/dL (16-24); ARTERIAL BLOOD GAS PO2 83 mm/Hg (80-100); ARTERIAL BLOOD HGB O2 SAT 95.3 % (95.0-98.0); CARBOXYHEMOGLOBIN 2.1 % (0.5-1.5); HHB 1.2 % (0.0-5.0); METHEMOGLOBIN 1.4 % (0.0-3.0)
[2016-08-28] MEDS: Fluticasone-Salmeterol 250-50mcg Diskus IH SCH ×2 (09:31→22:50)
[2016-08-28] MEDS: Brimonidine 0.2% 50 DROP/5 ML BOTTLE OS SCH ×2 (09:32→16:58)
[2016-08-28] MEDS: Pantoprazole 40 mg EC Tab PO SCH (09:34)
[2016-08-28] MEDS: Multivitamin With Minerals Tab PO SCH (09:34)
[2016-08-28] MEDS: Dorzolamide 2% Ophth Soln OU SCH ×3 (09:34→16:58)
[2016-08-28 10:11] LABS: HEMATOCRIT 30.3 % (34.0-47.0); MEAN CORPUSCULAR HGB CONC 29.4 g/dL (33.0-37.0); RED CELL DISTRIBUTION WIDTH 16.8 % (11.5-14.5); WHITE BLOOD COUNT 7.6 K/uL (4.8-10.8)
[2016-08-28 10:18] LABS: MEAN CELL VOLUME 88.5 fl (81.0-99.0)
[2016-08-28 10:19] LABS: BLOOD UREA NITROGEN 23 mg/dl (7-17); CHLORIDE 81 mmol/L (98-107); GFR AFRICAN-AMERICAN > 60; POTASSIUM 3.5 MMOL/L (3.6-5.0); SODIUM 142 mmol/l (132-148)
[2016-08-28] MEDS: methylPREDNISolone 30 MG in Sodium Chloride 0.9% 50 ML IV SCH (10:34)
[2016-08-28 10:44] LABS: CALCIUM 8.4 mg/dL (8.4-10.2); GLUCOSE,RANDOM 117 mg/dL (65-105)
[2016-08-28 10:56] LABS: CARBON DIOXIDE 50 mmol/L (22-30)
--- NOTE | 2016-08-28 13:13 | CP.PCM.PN ---
Subjective - Date & Time of Evaluation Date of Evaluation: 08/28/16 Time of Evaluation: 11:00 - Subjective Subjective: Pt seen and examined. Feeling better but requesting that he be allowed to walk around the [address] way. Objective - Vital Signs/Intake and Output Vital Signs (last 24 hours): Temp Pulse Resp BP Pulse Ox 98.2 F 72 20 127/57 L 99 08/28/16 12:18 08/28/16 12:18 08/28/16 12:18 08/28/16 12:18 08/28/16 12:18 - Medications Medications: Current Medications Acetaminophen (Tylenol 325mg Tab) 650 mg PO Q6 PRN PRN Reason: Pain, moderate (4-7) Acetazolamide (Diamox 250 Mg Tab) 250 mg PO DAILY [facility] Amlodipine Besylate (Norvasc) 5 mg PO DAILY [facility] Last Admin: 08/28/16 09:34 Dose: 5 mg Apixaban (Eliquis) 2.5 mg PO BID [facility] PRN Reason: Protocol Last Admin: 08/28/16 09:32 Dose: 2.5 mg Brimonidine Tartrate (Alphagan 0.2% Opht) 1 drop OS BID [facility] Last Admin: 08/28/16 09:32 Dose: 1 unit Dorzolamide HCl (Trusopt) 1 drop OU TID [facility] Last Admin: 08/28/16 09:34 Dose: 1 drop Folic Acid (Folic Acid) 1 mg PO DAILY [facility] Last Admin: 08/28/16 09:33 Dose: 1 mg Furosemide (Lasix) 20 mg PO DAILY [facility] Last Admin: 08/28/16 09:34 Dose: 20 mg Ampicillin Sodium/Sulbactam (Sodium 1.5 gm/ Sodium Chloride) 100 mls @ 100 mls/ hr IVPB Q6 [facility] Last Admin: 08/28/16 09:34 Dose: 100 mls/hr Methylprednisolone 30 mg/ (Sodium Chloride) 50 mls @ 100 mls/hr IV DAILY [facility] Last Admin: 08/28/16 10:34 Dose: 100 mls/hr Latanoprost (Xalatan Opht) 1 drop OS HS [facility] Last Admin: 08/27/16 22:44 Dose: 1 drop Levalbuterol HCl (Xopenex) 1.25 mg IH RQ8 [facility] Last Admin: 08/28/16 08:21 Dose: 1.25 mg Multivitamins/Minerals (Therapeutic-M Tab) 1 tab PO DAILY [facility] Last Admin: 08/28/16 09:34 Dose: 1 tab Pantoprazole Sodium (Protonix Ec Tab) 40 mg PO DAILY [facility] Last Admin: 08/28/16 09:34 Dose: 40 mg Fluticasone/Salmeterol (Advair Diskus 250/50) 1 puff IH Q12H [facility] Last Admin: 08/28/16 09:31 Dose: 1 puff Tramadol HCl (Ultram) 50 mg PO Q6 PRN PRN Reason: Pain, moderate (4-7) Vitamin A (Vitamin A&D) 1 applic TP Q8 PRN PRN Reason: Itching / Pruritus - Labs Labs: 08/28/16 09:45 08/28/16 09:45 PT 12.0 SECONDS (9.6-11.2) H 08/26/16 16:30 INR 1.15 (0.92-1.08) H 08/26/16 16:30 APTT 32.9 SECONDS (23.3-32.5) H 08/26/16 16:30 - Constitutional Appears: No Acute Distress - Head Exam Head Exam: ATRAUMATIC - Eye Exam Eye Exam: absent: Scleral icterus - ENT Exam ENT Exam: Mucous Membranes Moist - Neck Exam Neck Exam: absent: Meningismus - Respiratory Exam Respiratory Exam: absent: Rhonchi, Wheezes, Respiratory Distress - Cardiovascular Exam Cardiovascular Exam: REGULAR RHYTHM, +S1, +S2 - GI/Abdominal Exam GI & Abdominal Exam: Soft. absent: Tenderness - Rectal Exam Rectal Exam: Deferred - Extremities Exam Extremities Exam: Pedal Edema (both legs less swollen and wrinkly; erythema fading) - Neurological Exam Neurological Exam: Alert, Oriented x3 - Psychiatric Exam Psychiatric exam: Normal Affect - Skin Skin Exam: Dry, Erythema, Intact Assessment and Plan (1) Cellulitis of lower extremity Status: Acute (2) Hypercarbia Status: Acute (3) COPD (chronic obstructive pulmonary disease) Status: Chronic (4) Eosinophilia Status: Acute (5) DVT prophylaxis Status: Acute - Assessment and Plan (Free Text) Assessment: 86 yo female with history of COPD, AFib with pacemaker, CAD, HTN, GERD and Chronic Leg Edema secondary to venous stasis came in because of marked swelling and intense redness of both legs (looked like red lobster). (1) Cellulitis of lower extremity blood culture: so far no growth continue Zosyn 3.375gm IV q 6hrs instead of Vanco because of its association with red men syndrome legs less swollen and appeared wrinkly and deflated, erythema fading (2) Hypercarbia PCO2 above 100 again continue Bipap on low setting. (3) COPD (chronic obstructive pulmonary disease) stable. (4) Eosinophilia resolved (5) DVT prophylaxis on Apixaban for AFib
[2016-08-28] MEDS: Latanoprost 0.005% Opht SOUTION OS SCH (22:47)
[2016-08-29] MEDS: Ampicillin/Sulbactam 1.5 GM in Sodium Chloride 0.9% 100 ML IVPB SCH ×4 (04:33→22:40)
[2016-08-29] MEDS: Levalbuterol 1.25 MG/3 ML Inhal Soln UD IH SCH ×3 (08:00→23:30)
[2016-08-29] MEDS: methylPREDNISolone 30 MG in Sodium Chloride 0.9% 50 ML IV SCH (08:51)
[2016-08-29] MEDS: Fluticasone-Salmeterol 250-50mcg Diskus IH SCH ×2 (08:51→19:51)
[2016-08-29] MEDS: Brimonidine 0.2% 50 DROP/5 ML BOTTLE OS SCH ×2 (08:51→16:35)
[2016-08-29] MEDS: Dorzolamide 2% Ophth Soln OU SCH ×3 (08:52→16:35)
[2016-08-29] MEDS: Pantoprazole 40 mg EC Tab PO SCH (08:52)
[2016-08-29] MEDS: Multivitamin With Minerals Tab PO SCH (08:52)
[2016-08-29] MEDS: Potassium Chloride 20 mEq ER Tab PO SCH (09:01)
--- NOTE | 2016-08-29 14:58 | CP.PCM.PN ---
Subjective - Date & Time of Evaluation Date of Evaluation: 08/29/16 Time of Evaluation: 11:00 - Subjective Subjective: Pt seen and examined. Saw sleeping comfortably. When seen again, she claimed she felt alright and asked if she is going home tomorrow. Objective - Vital Signs/Intake and Output Vital Signs (last 24 hours): Temp Pulse Resp BP Pulse Ox 98.2 F 73 18 142/68 100 08/29/16 08:00 08/29/16 08:52 08/29/16 08:00 08/29/16 08:52 08/29/16 08:00 - Medications Medications: Current Medications Acetaminophen (Tylenol 325mg Tab) 650 mg PO Q6 PRN PRN Reason: Pain, moderate (4-7) Acetazolamide (Diamox 250 Mg Tab) 250 mg PO DAILY [facility] Last Admin: 08/29/16 08:52 Dose: 250 mg Amlodipine Besylate (Norvasc) 5 mg PO DAILY [facility] Last Admin: 08/29/16 08:52 Dose: 5 mg Apixaban (Eliquis) 2.5 mg PO BID [facility] PRN Reason: Protocol Last Admin: 08/29/16 08:52 Dose: 2.5 mg Brimonidine Tartrate (Alphagan 0.2% Opht) 1 drop OS BID [facility] Last Admin: 08/29/16 08:51 Dose: 1 unit Dorzolamide HCl (Trusopt) 1 drop OU TID [facility] Last Admin: 08/29/16 12:38 Dose: 1 drop Folic Acid (Folic Acid) 1 mg PO DAILY [facility] Last Admin: 08/29/16 08:53 Dose: 1 mg Furosemide (Lasix) 20 mg PO DAILY [facility] Last Admin: 08/29/16 08:52 Dose: 20 mg Ampicillin Sodium/Sulbactam (Sodium 1.5 gm/ Sodium Chloride) 100 mls @ 100 mls/ hr IVPB Q6 [facility] Last Admin: 08/29/16 09:01 Dose: 100 mls/hr Methylprednisolone 30 mg/ (Sodium Chloride) 50 mls @ 100 mls/hr IV DAILY [facility] Last Admin: 08/29/16 08:51 Dose: 100 mls/hr Latanoprost (Xalatan Opht) 1 drop OS HS [facility] Last Admin: 08/28/16 22:47 Dose: 1 drop Levalbuterol HCl (Xopenex) 1.25 mg IH RQ8 [facility] Last Admin: 08/29/16 08:00 Dose: 1.25 mg Multivitamins/Minerals (Therapeutic-M Tab) 1 tab PO DAILY [facility] Last Admin: 08/29/16 08:52 Dose: 1 tab Pantoprazole Sodium (Protonix Ec Tab) 40 mg PO DAILY [facility] Last Admin: 08/29/16 08:52 Dose: 40 mg Potassium Chloride (K-Dur 20 Meq Er Tab) 20 meq PO DAILY [facility] Last Admin: 08/29/16 09:01 Dose: 20 meq Fluticasone/Salmeterol (Advair Diskus 250/50) 1 puff IH Q12H [facility] Last Admin: 08/29/16 08:51 Dose: 1 puff Tramadol HCl (Ultram) 50 mg PO Q6 PRN PRN Reason: Pain, moderate (4-7) Vitamin A (Vitamin A&D) 1 applic TP Q8 PRN PRN Reason: Itching / Pruritus - Labs Labs: 08/28/16 09:45 08/28/16 09:45 PT 12.0 SECONDS (9.6-11.2) H 08/26/16 16:30 INR 1.15 (0.92-1.08) H 08/26/16 16:30 APTT 32.9 SECONDS (23.3-32.5) H 08/26/16 16:30 - Constitutional Appears: No Acute Distress - Head Exam Head Exam: ATRAUMATIC - Eye Exam Eye Exam: absent: Scleral icterus - ENT Exam ENT Exam: Mucous Membranes Moist - Neck Exam Neck Exam: absent: Meningismus - Respiratory Exam Respiratory Exam: absent: Rhonchi, Wheezes, Respiratory Distress - Cardiovascular Exam Cardiovascular Exam: REGULAR RHYTHM, +S1, +S2 - GI/Abdominal Exam GI & Abdominal Exam: Soft. absent: Tenderness - Rectal Exam Rectal Exam: Deferred - Extremities Exam Extremities Exam: absent: Normal Inspection (legs still red but fading and peeling), Tenderness - Neurological Exam Neurological Exam: Alert, Oriented x3 - Psychiatric Exam Psychiatric exam: Normal Affect - Skin Skin Exam: Dry, Intact Assessment and Plan (1) Cellulitis of lower extremity Status: Acute (2) Hypercarbia Status: Acute (3) COPD (chronic obstructive pulmonary disease) Status: Chronic (4) Eosinophilia Status: Acute (5) DVT prophylaxis Status: Acute - Assessment and Plan (Free Text) Assessment: 86 yo female with history of COPD, AFib with pacemaker, CAD, HTN, GERD and Chronic Leg Edema secondary to venous stasis came in because of marked swelling and intense redness of both legs (looked like red lobster). (1) Cellulitis of lower extremity blood culture: no growth on Zosyn 3.375gm IV q 6hrs instead of Vanco because of its association with red men syndrome legs less swollen and appeared wrinkly and scaly, erythema fading (2) Hypercarbia will repeat ABG in am (3) COPD (chronic obstructive pulmonary disease) stable. (4) Eosinophilia resolved (5) DVT prophylaxis on Apixaban for AFib
[2016-08-29] MEDS: Latanoprost 0.005% Opht SOUTION OS SCH (22:42)
[2016-08-30] MEDS: Ampicillin/Sulbactam 1.5 GM in Sodium Chloride 0.9% 100 ML IVPB SCH ×4 (05:00→22:01)
[2016-08-30 05:05] LABS: BASO % 0.4 % (0.0-2.0); EOS % 0.4 % (0.0-4.0); HEMATOCRIT 31.3 % (34.0-47.0); LYMPH # 0.8 K/uL (1.0-4.3); LYMPH % 10.1 % (20.0-40.0); MEAN CELL VOLUME 88.5 fl (81.0-99.0); MEAN CORPUSCULAR HEMOGLOBIN 26.5 pg (27.0-31.0); MEAN PLATELET VOLUME 9.2 fl (7.2-11.7); MONO # 0.8 K/uL (0.0-0.8); MONO % 11.1 % (0.0-10.0); NEUT # 5.9 K/uL (1.8-7.0); RED CELL DISTRIBUTION WIDTH 16.6 % (11.5-14.5); WHITE BLOOD COUNT 7.6 K/uL (4.8-10.8)
[2016-08-30 05:20] LABS: ABG ALLEN TEST YES; ABG MECHANICAL RATE 12; ARTERIAL BLOOD GAS HCO3 47.1 mmol/L (21-28); ARTERIAL BLOOD GAS MODE BiPAP; ARTERIAL BLOOD GAS O2 CAPACITY 13.1 mL/dL (16-24); ARTERIAL BLOOD GAS PH 7.42 (7.35-7.45); ARTERIAL BLOOD GAS PO2 93 mm/Hg (80-100); ARTERIAL BLOOD HGB O2 SAT 96.2 % (95.0-98.0); CARBOXYHEMOGLOBIN 1.8 % (0.5-1.5); HHB 0.6 % (0.0-5.0); METHEMOGLOBIN 1.4 % (0.0-3.0)
[2016-08-30 05:20] LABS: BLOOD UREA NITROGEN 21 mg/dl (7-17); CALCIUM 8.7 mg/dL (8.4-10.2); CHLORIDE 90 mmol/L (98-107); GFR AFRICAN-AMERICAN > 60; GLUCOSE,RANDOM 104 mg/dL (65-105); POTASSIUM 3.9 MMOL/L (3.6-5.0); SODIUM 141 mmol/l (132-148)
[2016-08-30 05:35] LABS: CARBON DIOXIDE 41 mmol/L (22-30)
[2016-08-30] MEDS: Levalbuterol 1.25 MG/3 ML Inhal Soln UD IH SCH ×2 (07:46→15:40)
[2016-08-30] MEDS: Fluticasone-Salmeterol 250-50mcg Diskus IH SCH ×2 (08:48→19:50)
[2016-08-30] MEDS: Multivitamin With Minerals Tab PO SCH (08:49)
[2016-08-30] MEDS: Pantoprazole 40 mg EC Tab PO SCH (08:49)
[2016-08-30] MEDS: Potassium Chloride 20 mEq ER Tab PO SCH (08:49)
[2016-08-30] MEDS: Dorzolamide 2% Ophth Soln OU SCH ×3 (08:51→16:22)
[2016-08-30] MEDS: Brimonidine 0.2% 50 DROP/5 ML BOTTLE OS SCH ×2 (08:52→16:22)
[2016-08-30] MEDS: methylPREDNISolone 30 MG in Sodium Chloride 0.9% 50 ML IV SCH (08:53)
--- NOTE | 2016-08-30 11:52 | CP.PCM.PN ---
Subjective - Date & Time of Evaluation Date of Evaluation: 08/30/16 Time of Evaluation: 11:50 - Subjective Subjective: Seen in bedside chair. Appears stable, PaCO2 is gradually decreasing. Mentally clear with longstanding hypercapnea, compensated. Continue nocturnal NIPPV. Continue acetazolamide. Dependant edema hes regressed nicely. Still erythematous LE's but no increased warmth. No dullness on chest percussion. No audible wheezing. Few dependant dry rales only. No bronchial breathing or egophony. Heart sounds are distant, regular rhythm. Continue present drug regimen. Solumedrol dc'd, started prednisone. Continue acetazolamide. May be transferred to a regular floor. Objective - Vital Signs/Intake and Output Vital Signs (last 24 hours): Temp Pulse Resp BP Pulse Ox 97.8 F 73 20 155/84 H 96 08/30/16 05:07 08/30/16 11:23 08/30/16 05:07 08/30/16 08:51 08/30/16 05:07 - Medications Medications: Current Medications Acetaminophen (Tylenol 325mg Tab) 650 mg PO Q6 PRN PRN Reason: Pain, moderate (4-7) Acetazolamide (Diamox 250 Mg Tab) 250 mg PO DAILY [facility] Last Admin: 08/30/16 08:49 Dose: 250 mg Amlodipine Besylate (Norvasc) 5 mg PO DAILY [facility] Last Admin: 08/30/16 08:50 Dose: 5 mg Apixaban (Eliquis) 2.5 mg PO BID [facility] PRN Reason: Protocol Last Admin: 08/30/16 08:49 Dose: 2.5 mg Brimonidine Tartrate (Alphagan 0.2% Opht) 1 drop OS BID [facility] Last Admin: 08/30/16 08:52 Dose: 1 drop Dorzolamide HCl (Trusopt) 1 drop OU TID [facility] Last Admin: 08/30/16 08:51 Dose: 1 drop Folic Acid (Folic Acid) 1 mg PO DAILY [facility] Last Admin: 08/30/16 08:50 Dose: 1 mg Furosemide (Lasix) 20 mg PO DAILY [facility] Last Admin: 08/30/16 08:51 Dose: 20 mg Ampicillin Sodium/Sulbactam (Sodium 1.5 gm/ Sodium Chloride) 100 mls @ 100 mls/ hr IVPB Q6 [facility] Last Admin: 08/30/16 05:00 Dose: 100 mls/hr Latanoprost (Xalatan Opht) 1 drop OS HS [facility] Last Admin: 08/29/16 22:42 Dose: 1 drop Levalbuterol HCl (Xopenex) 1.25 mg IH RQ8 [facility] Last Admin: 08/30/16 07:46 Dose: 1.25 mg Multivitamins/Minerals (Therapeutic-M Tab) 1 tab PO DAILY [facility] Last Admin: 08/30/16 08:49 Dose: 1 tab Pantoprazole Sodium (Protonix Ec Tab) 40 mg PO DAILY [facility] Last Admin: 08/30/16 08:49 Dose: 40 mg Potassium Chloride (K-Dur 20 Meq Er Tab) 20 meq PO DAILY [facility] Last Admin: 08/30/16 08:49 Dose: 20 meq Prednisone (Prednisone Tab) 15 mg PO DAILY [facility] Fluticasone/Salmeterol (Advair Diskus 250/50) 1 puff IH Q12H [facility] Last Admin: 08/30/16 08:48 Dose: 1 puff Vitamin A (Vitamin A&D) 1 applic TP Q8 PRN PRN Reason: Itching / Pruritus - Labs Labs: 08/30/16 04:00 08/30/16 04:00 PT 12.0 SECONDS (9.6-11.2) H 08/26/16 16:30 INR 1.15 (0.92-1.08) H 08/26/16 16:30 APTT 32.9 SECONDS (23.3-32.5) H 08/26/16 16:30
--- NOTE | 2016-08-30 13:18 | CP.PCM.PN ---
Subjective - Date & Time of Evaluation Date of Evaluation: 08/30/16 Time of Evaluation: 12:00 - Subjective Subjective: Pt is in good spirits today No fever leg pain very much improved no CP no cough doing well on Oxygen per NC, on Bipap q hs no abd pain Objective - Vital Signs/Intake and Output Vital Signs (last 24 hours): Temp Pulse Resp BP Pulse Ox 97.8 F 73 20 155/84 H 96 08/30/16 05:07 08/30/16 11:23 08/30/16 05:07 08/30/16 08:51 08/30/16 05:07 - Medications Medications: Current Medications Acetaminophen (Tylenol 325mg Tab) 650 mg PO Q6 PRN PRN Reason: Pain, moderate (4-7) Acetazolamide (Diamox 250 Mg Tab) 250 mg PO DAILY [facility] Last Admin: 08/30/16 08:49 Dose: 250 mg Amlodipine Besylate (Norvasc) 5 mg PO DAILY [facility] Last Admin: 08/30/16 08:50 Dose: 5 mg Apixaban (Eliquis) 2.5 mg PO BID [facility] PRN Reason: Protocol Last Admin: 08/30/16 08:49 Dose: 2.5 mg Brimonidine Tartrate (Alphagan 0.2% Opht) 1 drop OS BID [facility] Last Admin: 08/30/16 08:52 Dose: 1 drop Dorzolamide HCl (Trusopt) 1 drop OU TID [facility] Last Admin: 08/30/16 12:08 Dose: 1 drop Folic Acid (Folic Acid) 1 mg PO DAILY [facility] Last Admin: 08/30/16 08:50 Dose: 1 mg Furosemide (Lasix) 20 mg PO DAILY [facility] Last Admin: 08/30/16 08:51 Dose: 20 mg Ampicillin Sodium/Sulbactam (Sodium 1.5 gm/ Sodium Chloride) 100 mls @ 100 mls/ hr IVPB Q6 [facility] Last Admin: 08/30/16 10:05 Dose: 100 mls/hr Latanoprost (Xalatan Opht) 1 drop OS HS [facility] Last Admin: 08/29/16 22:42 Dose: 1 drop Levalbuterol HCl (Xopenex) 1.25 mg IH RQ8 [facility] Last Admin: 08/30/16 07:46 Dose: 1.25 mg Multivitamins/Minerals (Therapeutic-M Tab) 1 tab PO DAILY [facility] Last Admin: 08/30/16 08:49 Dose: 1 tab Pantoprazole Sodium (Protonix Ec Tab) 40 mg PO DAILY [facility] Last Admin: 08/30/16 08:49 Dose: 40 mg Potassium Chloride (K-Dur 20 Meq Er Tab) 20 meq PO DAILY [facility] Last Admin: 08/30/16 08:49 Dose: 20 meq Prednisone (Prednisone Tab) 15 mg PO DAILY [facility] Fluticasone/Salmeterol (Advair Diskus 250/50) 1 puff IH Q12H [facility] Last Admin: 08/30/16 08:48 Dose: 1 puff Vitamin A (Vitamin A&D) 1 applic TP Q8 PRN PRN Reason: Itching / Pruritus - Labs Labs: 08/30/16 04:00 08/30/16 04:00 PT 12.0 SECONDS (9.6-11.2) H 08/26/16 16:30 INR 1.15 (0.92-1.08) H 08/26/16 16:30 APTT 32.9 SECONDS (23.3-32.5) H 08/26/16 16:30 - Constitutional Appears: No Acute Distress - Head Exam Head Exam: NORMAL INSPECTION, NORMOCEPHALIC - Eye Exam Pupil Exam: NORMAL ACCOMODATION - ENT Exam ENT Exam: Mucous Membranes Moist, Normal External Ear Exam - Neck Exam Neck Exam: Full ROM. absent: Meningismus - Respiratory Exam Respiratory Exam: Decreased Breath Sounds, Rhonchi. absent: Accessory Muscle Use, Rales, Wheezes, Respiratory Distress - Cardiovascular Exam Cardiovascular Exam: Irregular Rhythm, +S1, +S2 - GI/Abdominal Exam GI & Abdominal Exam: Soft, Normal Bowel Sounds. absent: Tenderness - Extremities Exam Extremities Exam: Normal Capillary Refill Additional comments: bilat LE swelling, eryuthema, very minimal tenderness - very much improved - Back Exam Back Exam: absent: CVA tenderness (L), CVA tenderness (R), paraspinal tenderness , vertebral tenderness - Neurological Exam Neurological Exam: Alert, Awake, CN II-XII Intact, Oriented x3 Neuro motor strength exam: Left Upper Extremity: 5, Right Upper Extremity: 5, Left Lower Extremity: 5, Right Lower Extremity: 5 - Psychiatric Exam Psychiatric exam: Normal Affect, Normal Mood - Skin Skin Exam: Dry, Normal Color, Warm Assessment and Plan (1) Bilateral lower leg cellulitis Status: Acute (2) COPD exacerbation Status: Acute (3) Acute and chronic respiratory failure with hypercapnia Status: Acute (4) Hypertension Status: Chronic (5) Chronic atrial fibrillation Status: Chronic (6) Chronic diastolic CHF (congestive heart failure) Status: Chronic (7) Pulmonary hypertension Status: Chronic - Assessment and Plan (Free Text) Assessment: 86 y/o lady with hx of Asthma/COPD,A Fib, Chronic Resp Failure - on Home NIPPV, HTN, Diastolic CHF, came in becaues of bilateral LE erythema, pain and swelling. - found to have Cellulitis. Also noted to have elevated [id number] (1) Bilateral lower leg cellulitis Status: Acute clinically improving bilat LE redeness, tenderness and swelling cont IV Unasyn Podiatry consult Blood c/s: no growth after 3 days (2) COPD exacerbation Status: Acute improving IV Solumedrol chhanged to PO Prednisone cont Xopenex neb cont Advair (3) Acute and chronic respiratory failure with hypercapnia Status: Acute elevated Co2 to 113 now improving cont Acetazolomide Pulm: Dr Mack following pt cont Bipap q hs (4) Hypertension Status: Chronic cont Norvasc and Lasix (5) Chronic atrial fibrillation, rate controlled Status: Chronic cont Eliquis (6) Chronic diastolic CHF (congestive heart failure) Status: Chronic cont Lasix Ecfho: normal EF, Pulm HTN, severeTR (7) Pulmonary hypertension, moderate Status: Chronic cont Norvasc
--- NOTE | 2016-08-30 18:35 | CP.PCM.CON ---
History of Present Illness - History of Present Illness History of Present Illness: This is an 86 y/o female who was seen and evaluated at bedside today after request for podiatry consultation for bilateral LE cellulitis/bilateral heel pain. Patient has PMH significant for COPD, Afib with pacemaker, HTN, CAD, GERD and bilateral LE chronic venous stasis. Patient states that when she was initially admitted to the hospital, she had severe edema and erythema to both of her legs. Both symptoms have now been resolving as per the patient. She states that her heels have been hurting since her admission to the hospital. She also complains of dryness to bilateral lower legs and feet. She currently denies any F/C/N/V/SOB/CP. She denies any burning, tingling or numbness to her feet. No other pedal complaints reported at this time. Past Patient History - Infectious Disease Hx of Infectious Diseases: None - Tetanus Immunizations Tetanus Immunization: Unknown - Past Medical History & Family History Past Medical History?: Yes - Past Social History Smoking Status: Never Smoked - CARDIAC Hx Atrial Fibrillation: Yes Hx Cardia Arrhythmia: Yes Hx Congestive Heart Failure: No Hx Hypercholesterolemia: No Hx Hypertension: Yes Hx Pacemaker: Yes Hx Peripheral Edema: Yes - PULMONARY Hx Asthma: Yes Hx Bronchitis: Yes Hx Chronic Obstructive Pulmonary Disease (COPD): Yes Hx Emphysema: Yes Hx Pneumonia: Yes - NEUROLOGICAL Hx Neurological Disorder: No - HEENT Hx HEENT Problems: Yes Hx Glaucoma: Yes Other/Comment: Hx Retina surgery Right Eye - RENAL Hx Chronic Kidney Disease: No - ENDOCRINE/METABOLIC Hx Hyperthyroidism: Yes (subtotal thyroidectomy) Hx Hypothyroidism: No - HEMATOLOGICAL/ONCOLOGICAL Hx Human Immunodeficiency Virus (HIV): No - INTEGUMENTARY Hx Dermatological Problems: Yes Hx Cellulitis: Yes Other/Comment: Chronic venous insufficiency of both lower extremities with ulceration in the right pretibial area - MUSCULOSKELETAL/RHEUMATOLOGICAL Hx Arthritis: No Hx Fractures: Yes (Left femur) Hx Rheumatoid Arthritis: No - GASTROINTESTINAL Hx Gastrointestinal Disorders: Yes Hx Gastroesophageal Reflux: Yes - GENITOURINARY/GYNECOLOGICAL Hx Genitourinary Disorders: No - PSYCHIATRIC Hx Anxiety: Yes - SURGICAL HISTORY Hx Appendectomy: Yes Hx Cholecystectomy: Yes - ANESTHESIA Hx Anesthesia: Yes Hx Anesthesia Reactions: Yes Hx Malignant Hyperthermia: No Meds Allergies/Adverse Reactions: Allergies Allergy/AdvReac Type Severity Reaction Status Date / Time codeine Allergy DIZZINESS Verified 06/25/16 15:55 iodine Allergy SHORTNESS Verified 06/25/16 15:55 OF BREATH lidocaine Allergy RASH Verified 06/25/16 15:55 Sulfa (Sulfonamide Allergy RASH Verified 06/25/16 15:55 Antibiotics) levofloxacin [From Levaquin] AdvReac PALPITATION Verified 06/25/16 15:55 S anesthesia Allergy SHORTNESS Uncoded 06/25/16 15:55 OF BREATH - Medications Medications: Current Medications Acetaminophen (Tylenol 325mg Tab) 650 mg PO Q6 PRN PRN Reason: Pain, moderate (4-7) Acetazolamide (Diamox 250 Mg Tab) 250 mg PO DAILY [facility] Last Admin: 08/30/16 08:49 Dose: 250 mg Amlodipine Besylate (Norvasc) 5 mg PO DAILY [facility] Last Admin: 08/30/16 08:50 Dose: 5 mg Apixaban (Eliquis) 2.5 mg PO BID [facility] PRN Reason: Protocol Last Admin: 08/30/16 16:22 Dose: 2.5 mg Brimonidine Tartrate (Alphagan 0.2% Opht) 1 drop OS BID [facility] Last Admin: 08/30/16 16:22 Dose: 1 drop Dorzolamide HCl (Trusopt) 1 drop OU TID [facility] Last Admin: 08/30/16 16:22 Dose: 1 drop Folic Acid (Folic Acid) 1 mg PO DAILY [facility] Last Admin: 08/30/16 08:50 Dose: 1 mg Furosemide (Lasix) 20 mg PO DAILY [facility] Last Admin: 08/30/16 08:51 Dose: 20 mg Ampicillin Sodium/Sulbactam (Sodium 1.5 gm/ Sodium Chloride) 100 mls @ 100 mls/ hr IVPB Q6 [facility] Last Admin: 08/30/16 16:24 Dose: 100 mls/hr Latanoprost (Xalatan Opht) 1 drop OS HS [facility] Last Admin: 08/29/16 22:42 Dose: 1 drop Levalbuterol HCl (Xopenex) 1.25 mg IH RQ8 [facility] Last Admin: 08/30/16 15:40 Dose: 1.25 mg Multivitamins/Minerals (Therapeutic-M Tab) 1 tab PO DAILY [facility] Last Admin: 08/30/16 08:49 Dose: 1 tab Pantoprazole Sodium (Protonix Ec Tab) 40 mg PO DAILY [facility] Last Admin: 08/30/16 08:49 Dose: 40 mg Potassium Chloride (K-Dur 20 Meq Er Tab) 20 meq PO DAILY [facility] Last Admin: 08/30/16 08:49 Dose: 20 meq Prednisone (Prednisone Tab) 15 mg PO DAILY [facility] Fluticasone/Salmeterol (Advair Diskus 250/50) 1 puff IH Q12H [facility] Last Admin: 08/30/16 08:48 Dose: 1 puff Vitamin A (Vitamin A&D) 1 applic TP Q8 PRN PRN Reason: Itching / Pruritus Physical Exam - Constitutional Appears: Non-toxic, No Acute Distress - Extremities Exam Extremities exam: Positive for: pedal edema. Negative for: calf tenderness - Neurological Exam Neurological exam: Alert, Oriented x3 - Psychiatric Exam Psychiatric exam: Normal Affect, Normal Mood - Skin Skin Exam: Dry, Erythema - Additional Findings Additional findings: Bilateral lower extremity examination: Vascular: DP pulse 1/4; PT pulse non-palpable; CFT 4 sec x10; temperature gradient is warm proximally to cool distally Neuro: light touch sensation and motor function grossly intact Derm: bilateral lower extremity cellulitis is noted approximately 10cm distal to both knee joints and extending distally to the toes bilaterally; mild dorsal foot non-pitting edema is present bilaterally; diffuse xerosis is noted to bilateral legs and plantar foot; skin changes associated with chronic stasis noted to bilateral legs; no open wounds or breaks in the skin evident at this time Ortho: prominent 5th metatarsal base noted (R>L); mild pain elicited upon palpation of the central aspect of both heels Results - Vital Signs Recent Vital Signs: Last Vital Signs Temp 99.3 F 08/30/16 15:40 Pulse 69 08/30/16 15:40 Resp 20 08/30/16 15:40 BP 123/65 08/30/16 15:40 Pulse Ox 96 08/30/16 15:40 - Labs Result Diagrams: 08/30/16 04:00 08/30/16 04:00 Labs: Laboratory Results - last 24 hr 08/30/16 08/30/16 04:00 05:00 WBC 7.6 RBC 3.54 L Hgb 9.4 L Hct 31.3 L MCV 88.5 MCH 26.5 L MCHC 30.0 L RDW 16.6 H Plt Count 181 MPV 9.2 Neut % (Auto) 78.0 H Lymph % (Auto) 10.1 L [place] % (Auto) 11.1 H Eos % (Auto) 0.4 Baso % (Auto) 0.4 Neut # 5.9 Lymph # 0.8 L [place] # 0.8 Eos # 0.0 Baso # 0.0 pCO2 88 H* pO2 93 HCO3 47.1 H* ABG pH 7.42 ABG Total CO2 59.8 H ABG O2 Saturation 99.4 H ABG O2 Content 13.0 L ABG Base Excess 28.4 H ABG Hemoglobin 9.5 L ABG Carboxyhemoglobin 1.8 H POC ABG HHb (Measured) 0.6 ABG Methemoglobin 1.4 ABG O2 Capacity 13.1 L Gilberto Test Yes A-a O2 Difference 11.0 Hgb O2 Saturation 96.2 Vent Mode Bipap Mechanical Rate 12 FiO2 30.0 Inspiratory BiPAP 10 Expiratory BiPAP 4 Crit Value Called To Josue claudio Crit Value Called By 333 Crit Value Read Back Y Blood Gas Notified Time 505 Sodium 141 Potassium 3.9 Chloride 90 L Carbon Dioxide 41 H* Anion Gap 14 BUN 21 H Creatinine 1.0 Est GFR ( Amer) > 60 Est GFR (Non-Af Amer) 52 Random Glucose 104 Calcium 8.7 Assessment & Plan - Assessment and Plan (Free Text) Assessment: 86 y/o female with bilateral lower extremity chronic venous stasis with concomitant cellulitis; bilateral heel pain Plan: Patient seen and evaluated Labs and vitals reviewed: WBC 7.6; afebrile Bilateral LE venous duplex neg for DVT Blood cx neg x2 Will order Lotrisone cream to be applied BID Will order Prevalon boots, to be worn by the patient at all times while in bed in order to offload the heels and alleviate pain We will continue to monitor the extents of the patient's cellulitis Patient is to continue receiving IV abx Discussed patient in detail with attending, Dr. Cr Podiatry to follow while patient remains in house
[2016-08-30] MEDS: Latanoprost 0.005% Opht SOUTION OS SCH (22:09)
[2016-08-31] MEDS: Levalbuterol 1.25 MG/3 ML Inhal Soln UD IH SCH ×3 (00:42→15:39)
[2016-08-31] MEDS: Ampicillin/Sulbactam 1.5 GM in Sodium Chloride 0.9% 100 ML IVPB SCH ×3 (05:00→16:20)
[2016-08-31 07:13] LABS: HEMATOCRIT 33.2 % (34.0-47.0); MEAN CORPUSCULAR HEMOGLOBIN 26.3 pg (27.0-31.0); MEAN CORPUSCULAR HGB CONC 29.6 g/dL (33.0-37.0); RED CELL DISTRIBUTION WIDTH 16.1 % (11.5-14.5); WHITE BLOOD COUNT 8.5 K/uL (4.8-10.8)
[2016-08-31 07:15] LABS: CALCIUM 9.1 mg/dL (8.4-10.2); POTASSIUM 3.7 MMOL/L (3.6-5.0)
[2016-08-31 08:04] VITALS: O2SAT 100
[2016-08-31] MEDS: Fluticasone-Salmeterol 250-50mcg Diskus IH SCH (08:54)
[2016-08-31] MEDS: Dorzolamide 2% Ophth Soln OU SCH ×3 (08:57→16:25)
[2016-08-31] MEDS: Brimonidine 0.2% 50 DROP/5 ML BOTTLE OS SCH ×2 (08:57→16:24)
[2016-08-31] MEDS: Multivitamin With Minerals Tab PO SCH (08:58)
[2016-08-31] MEDS: Pantoprazole 40 mg EC Tab PO SCH (08:58)
[2016-08-31] MEDS: Ammonium Lactate 12% Cream (140 g) TOP SCH ×2 (08:59→16:26)
[2016-08-31] MEDS: Potassium Chloride 20 mEq ER Tab PO SCH (08:59)
--- NOTE | 2016-08-31 09:48 | CP.PCM.PN ---
Subjective - Date & Time of Evaluation Date of Evaluation: 08/31/16 Time of Evaluation: 09:45 - Subjective Subjective: Seen on morning rounds. Interim events reviewed. Seen by podiatry yesterday, appreciated. Vital signs have been stable. Labwork remains good with CO2 41mmol. LE edema has decreased nicely, still erythematous. Breath sounds present bilaterally w/o wheezes or bronchial breath sounds. 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 Agree with plan for DC to TCU for continued antibiotic. Prednisone down to 10MG tomorrow. Continue acetazolamide 250 daily. Monitor BMP. Objective - Vital Signs/Intake and Output Vital Signs (last 24 hours): Temp Pulse Resp BP Pulse Ox 98.2 F 73 18 134/62 100 08/31/16 08:00 08/31/16 08:58 08/31/16 08:00 08/31/16 08:58 08/31/16 08:00 - Medications Medications: Current Medications Acetaminophen (Tylenol 325mg Tab) 650 mg PO Q6 PRN PRN Reason: Pain, moderate (4-7) Acetazolamide (Diamox 250 Mg Tab) 250 mg PO DAILY [facility] Last Admin: 08/31/16 08:58 Dose: 250 mg Amlodipine Besylate (Norvasc) 5 mg PO DAILY [facility] Last Admin: 08/31/16 08:58 Dose: 5 mg Apixaban (Eliquis) 2.5 mg PO BID [facility] PRN Reason: Protocol Last Admin: 08/31/16 08:59 Dose: 2.5 mg Brimonidine Tartrate (Alphagan 0.2% Opht) 1 drop OS BID [facility] Last Admin: 08/31/16 08:57 Dose: 1 drop Dorzolamide HCl (Trusopt) 1 drop OU TID [facility] Last Admin: 08/31/16 08:57 Dose: 1 drop Folic Acid (Folic Acid) 1 mg PO DAILY [facility] Last Admin: 08/31/16 08:57 Dose: 1 mg Furosemide (Lasix) 20 mg PO DAILY [facility] Last Admin: 08/31/16 08:57 Dose: 20 mg Ampicillin Sodium/Sulbactam (Sodium 1.5 gm/ Sodium Chloride) 100 mls @ 100 mls/ hr IVPB Q6 [facility] Last Admin: 08/31/16 09:03 Dose: 100 mls/hr Lactic Acid (Lac-Hydrin 12% Cream (140 G)) 1 ea TOP BID [facility] Last Admin: 08/31/16 08:59 Dose: 1 applic Latanoprost (Xalatan Opht) 1 drop OS HS [facility] Last Admin: 08/30/16 22:09 Dose: 1 drop Levalbuterol HCl (Xopenex) 1.25 mg IH RQ8 [facility] Last Admin: 08/31/16 07:30 Dose: 1.25 mg Multivitamins/Minerals (Therapeutic-M Tab) 1 tab PO DAILY [facility] Last Admin: 08/31/16 08:58 Dose: 1 tab Pantoprazole Sodium (Protonix Ec Tab) 40 mg PO DAILY [facility] Last Admin: 08/31/16 08:58 Dose: 40 mg Potassium Chloride (K-Dur 20 Meq Er Tab) 20 meq PO DAILY [facility] Last Admin: 08/31/16 08:59 Dose: 20 meq Prednisone (Prednisone Tab) 10 mg PO DAILY [facility] Fluticasone/Salmeterol (Advair Diskus 250/50) 1 puff IH Q12H [facility] Last Admin: 08/31/16 08:54 Dose: 1 puff Vitamin A (Vitamin A&D) 1 applic TP Q8 PRN PRN Reason: Itching / Pruritus - Labs Labs: 08/31/16 06:00 08/31/16 06:00 PT 12.0 SECONDS (9.6-11.2) H 08/26/16 16:30 INR 1.15 (0.92-1.08) H 08/26/16 16:30 APTT 32.9 SECONDS (23.3-32.5) H 08/26/16 16:30
[2016-08-31 17:00] VITALS: BP 122/61; PULSE 70; RESP 20; TEMP 98.9
--- NOTE | 2016-08-31 18:20 | CP.PCM.DIS ---
Provider - Provider Date of Admission: 08/26/16 18:12 Attending physician: Jim oMck MD Primary care physician: Dr Mack Consults: Dr Mack Time Spent in preparation of Discharge (in minutes): 30 Diagnosis - Discharge Diagnosis (1) Cellulitis of lower extremity Status: Acute Comment: swelling and redness subsiding on both legs. continue IV Unasyn (2) Hypercarbia Status: Acute Comment: pCO2 down to 88 from 113. continue BIPAP at night. continue Acetazolamide (3) COPD (chronic obstructive pulmonary disease) Status: Chronic Priority: High Comment: Xopenex q 8hrs. Advair 250/50 1 puff q 12hrs. Prednisone 10mg PO daily (4) DVT prophylaxis Status: Acute Priority: Medium Comment: pt on Eliquis 2.5mg PO BID Hospital Course - Lab Results Lab Results: Most Recent Lab Values WBC 8.5 K/uL (4.8-10.8) 08/31/16 06:00 RBC 3.73 Mil/uL (3.80-5.20) L 08/31/16 06:00 Hgb 9.8 g/dL (12.0-16.0) L 08/31/16 06:00 Hct 33.2 % (34.0-47.0) L 08/31/16 06:00 MCV 89.0 fl (81.0-99.0) 08/31/16 06:00 MCH 26.3 pg (27.0-31.0) L 08/31/16 06:00 MCHC 29.6 g/dL (33.0-37.0) L 08/31/16 06:00 RDW 16.1 % (11.5-14.5) H 08/31/16 06:00 Plt Count 206 K/uL (130-400) 08/31/16 06:00 MPV 9.2 fl (7.2-11.7) 08/30/16 04:00 Neut % (Auto) 78.0 % (50.0-75.0) H 08/30/16 04:00 Lymph % (Auto) 10.1 % (20.0-40.0) L 08/30/16 04:00 [place] % (Auto) 11.1 % (0.0-10.0) H 08/30/16 04:00 Eos % (Auto) 0.4 % (0.0-4.0) 08/30/16 04:00 Baso % (Auto) 0.4 % (0.0-2.0) 08/30/16 04:00 Neut # 5.9 K/uL (1.8-7.0) 08/30/16 04:00 Lymph # 0.8 K/uL (1.0-4.3) L 08/30/16 04:00 [place] # 0.8 K/uL (0.0-0.8) 08/30/16 04:00 Eos # 0.0 K/uL (0.0-0.7) 08/30/16 04:00 Baso # 0.0 K/uL (0.0-0.2) 08/30/16 04:00 ESR 20 mm/hr (0-30) 08/26/16 16:30 PT 12.0 SECONDS (9.6-11.2) H 08/26/16 16:30 INR 1.15 (0.92-1.08) H 08/26/16 16:30 APTT 32.9 SECONDS (23.3-32.5) H 08/26/16 16:30 pCO2 88 mm/Hg (35-45) H* 08/30/16 05:00 pO2 93 mm/Hg (80-100) 08/30/16 05:00 HCO3 47.1 mmol/L (21-28) H* 08/30/16 05:00 ABG pH 7.42 (7.35-7.45) 08/30/16 05:00 ABG Total CO2 59.8 mmol/L (22-28) H 08/30/16 05:00 ABG O2 Saturation 99.4 % (95-98) H 08/30/16 05:00 ABG O2 Content 13.0 ML/dL (15-23) L 08/30/16 05:00 ABG Base Excess 28.4 mmol/L (-2.0-3.0) H 08/30/16 05:00 ABG Hemoglobin 9.5 g/dL (11.7-17.4) L 08/30/16 05:00 ABG Carboxyhemoglobin 1.8 % (0.5-1.5) H 08/30/16 05:00 POC ABG HHb (Measured) 0.6 % (0.0-5.0) 08/30/16 05:00 ABG Methemoglobin 1.4 % (0.0-3.0) 08/30/16 05:00 ABG O2 Capacity 13.1 mL/dL (16-24) L 08/30/16 05:00 Gilberto Test Yes 08/30/16 05:00 A-a O2 Difference 11.0 mm/Hg 08/30/16 05:00 Hgb O2 Saturation 96.2 % (95.0-98.0) 08/30/16 05:00 Vent Mode Bipap 08/30/16 05:00 Mechanical Rate 12 08/30/16 05:00 FiO2 30.0 % 08/30/16 05:00 Inspiratory BiPAP 10 08/30/16 05:00 Expiratory BiPAP 4 08/30/16 05:00 Blood Gas Comments 3l/m nc.rr 08/28/16 08:51 Crit Value Called To Josue claudio 08/30/16 05:00 Crit Value Called By 333 08/30/16 05:00 Crit Value Read Back Y 08/30/16 05:00 Blood Gas Notified Time 505 08/30/16 05:00 Sodium 142 mmol/l (132-148) 08/31/16 06:00 Potassium 3.7 MMOL/L (3.6-5.0) 08/31/16 06:00 Chloride 91 mmol/L (98-107) L 08/31/16 06:00 Carbon Dioxide 41 mmol/L (22-30) H* 08/31/16 06:00 Anion Gap 14 (10-20) 08/31/16 06:00 BUN 22 mg/dl (7-17) H 08/31/16 06:00 Creatinine 1.1 mg/dL (0.7-1.2) 08/31/16 06:00 Est GFR ( Amer) 57 08/31/16 06:00 Est GFR (Non-Af Amer) 47 08/31/16 06:00 Random Glucose 90 mg/dL (65-105) 08/31/16 06:00 Calcium 9.1 mg/dL (8.4-10.2) 08/31/16 06:00 NT-Pro-B Natriuret Pep 6710 pg/ml (0-900) H 08/26/16 16:30 - Hospital Course Hospital Course: 86 yo female with history of COPD, AFib with pacemaker, CAD, HTN, GERD and Chronic Leg Edema secondary to venous stasis came in because of marked swelling and intense redness of both legs (look like cooked lobster). Although patient did not complain of SOB or AMS, her PCO2 has been way up. Pt was put on IV Unasyn and low rate Bipap. She did well with the redness and swelling of the legs subsiding and PCO2 also dropping. Pt was recommended to continue IV Unasyn and so she was moved to TCU. Discharge Exam - Head Exam Head Exam: NORMAL INSPECTION, NORMOCEPHALIC - Eye Exam Eye Exam: absent: Scleral icterus - ENT Exam ENT Exam: Mucous Membranes Moist - Respiratory Exam Respiratory Exam: absent: Wheezes, Respiratory Distress - Cardiovascular Exam Cardiovascular Exam: REGULAR RHYTHM, +S1, +S2 - GI/Abdominal Exam GI & Abdominal Exam: Soft. absent: Tenderness - Rectal Exam Rectal Exam: Deferred - Neurological Exam Neurological exam: Alert, Oriented x3 - Psychiatric Exam Psychiatric exam: Normal Affect - Skin Skin Exam: Dry, Intact Discharge Plan - Follow Up Plan Condition: FAIR Disposition: HOME/ ROUTINE
== END 2016-08-31 18:45 | DRG 602 ==
LOC: H.ER 15:39 → H.ERHOLD 18:12 → H.TEL 21:45 → H.MEDSURG1 08-31 10:13
PROC: 5A09557 Assistance with Respiratory Ventilation, Greater than 96 Consecutive Hours, Continuous Positive Airway Pressure (ICD-10-PCS; principal; 2016-08-26)
DX: L03.116 Cellulitis of left lower limb (principal); J96.22 Acute and chronic respiratory failure with hypercapnia; J44.1 Chronic obstructive pulmonary disease with (acute) exacerbation; I50.32 Chronic diastolic (congestive) heart failure; L03.115 Cellulitis of right lower limb; I11.0 Hypertensive heart disease with heart failure; D72.1 Eosinophilia; I27.2 Other secondary pulmonary hypertension; I48.2 Chronic atrial fibrillation; I87.2 Venous insufficiency (chronic) (peripheral); J45.909 Unspecified asthma, uncomplicated; I25.10 Atherosclerotic heart disease of native coronary artery without angina pectoris; K21.9 Gastro-esophageal reflux disease without esophagitis; F41.9 Anxiety disorder, unspecified; Z99.81 Dependence on supplemental oxygen; Z95.0 Presence of cardiac pacemaker; Z88.2 Allergy status to sulfonamides; Z88.6 Allergy status to analgesic agent; Z91.041 Radiographic dye allergy status

== ENCOUNTER 2016-08-31 15:11 | Inpatient (IN) | payer OTHER, MEDICAID ==
[2016-08-31 19:26] VITALS: BMI 24.8
[2016-08-31] MEDS ORDERED: Patient's Own Med (Levalbuterol Tartrate [Xopenex Hfa] 2 PUFF) IH PRN (20:46)
[2016-08-31] MEDS ORDERED: Levalbuterol 1.25 MG/3 ML Inhal Soln UD IH PRN (20:46)
[2016-08-31] MEDS: Fluticasone-Salmeterol 250-50mcg Diskus IH SCH (21:49)
[2016-08-31] MEDS ORDERED: Patient's Own Med (Travoprost [Travatan Z] 1 DROP) LEFTEYE SCH (22:00)
[2016-09-01] MEDS: Ampicillin/Sulbactam 1.5 GM in Sodium Chloride 0.9% 100 ML IVPB SCH ×4 (01:00→17:10)
[2016-09-01] MEDS: Brimonidine 0.2% 50 DROP/5 ML BOTTLE OS SCH ×2 (08:32→16:28)
[2016-09-01] MEDS: Fluticasone-Salmeterol 250-50mcg Diskus IH SCH (08:32)
[2016-09-01] MEDS: Potassium Chloride 20 mEq ER Tab PO SCH (08:33)
[2016-09-01] MEDS: Dorzolamide 2% Ophth Soln OU SCH ×3 (08:34→16:28)
[2016-09-01] MEDS: Multivitamin With Minerals Tab PO SCH (08:34)
[2016-09-01] MEDS: Pantoprazole 40 mg EC Tab PO SCH (08:34)
[2016-09-01] MEDS ORDERED: Patient's Own Med (Brimonidine 0.15% [Alphagan P 0.15% Opht] 1 DROP) LEFTEYE SCH (09:00)
[2016-09-01] MEDS ORDERED: MULTIVITAMIN WITH MINERALS PO SCH (09:00)
--- NOTE | 2016-09-01 10:03 | CP.PCM.PN ---
Subjective - Date & Time of Evaluation Date of Evaluation: 09/01/16 Time of Evaluation: 09:47 - Subjective Subjective: This 86 year old Arabic speaking female with chronic persistent asthma and COPD with chronic hypercapnic respiratory failure was initially admitted to acute medicine with cellulitis of bilateral LE's plus acutely decompensated hypercarbia. She had done well with treatments on telemetry for her cellulitis as well as her CO2 retention and was able to be discharged to [facility] [place] for continued treatment. She will require continued NIPPV overnight using BiPAP ventilator and mask which may be used PRN during the daytime as well. Her aerosol therapies have been changed to albuterol via nebulizer QID with budesonide BID. Advair will be discontinued. Prednisone will be 10MG daily for three days then reduced to 5MG and stopped completely after three more days. Acetazolamide has been added at 250MG once daily and may be increased to BID if well tolerated and effective to help reduce her TCO2. Hopefully her respiratory equipment at home can be checked, and any problems rectified since she claims it has not been functioning properly. I will follow with you as needed, thanks. Objective - Vital Signs/Intake and Output Vital Signs (last 24 hours): Temp Pulse Resp BP Pulse Ox 97.8 F 90 20 120/65 97 09/01/16 08:09 09/01/16 08:09 09/01/16 08:09 09/01/16 08:33 09/01/16 08:09 - Medications Medications: Current Medications Acetazolamide (Diamox 250 Mg Tab) 250 mg PO DAILY [facility] Last Admin: 09/01/16 08:33 Dose: 250 mg Albuterol Sulfate (Albuterol 0.083% Inhal Christi (2.5 Mg/3 Ml) Ud) 2.5 mg INH RQID [facility] Albuterol Sulfate (Albuterol 0.083% Inhal Christi (2.5 Mg/3 Ml) Ud) 2.5 mg INH RQ4 PRN PRN Reason: Shortness of Breath Apixaban (Eliquis) 2.5 mg PO BID [facility] PRN Reason: Protocol Last Admin: 09/01/16 08:33 Dose: 2.5 mg Brimonidine Tartrate (Alphagan 0.2% Opht) 1 drop OS BID [facility] Last Admin: 09/01/16 08:32 Dose: 1 drop Budesonide (Pulmicort Respules) 0.5 mg IH RBID [facility] Dorzolamide HCl (Trusopt) 1 drop OU TID [facility] Last Admin: 09/01/16 08:34 Dose: 1 drop Folic Acid (Folic Acid) 1 mg PO DAILY [facility] Last Admin: 09/01/16 08:33 Dose: 1 mg Furosemide (Lasix) 20 mg PO DAILY [facility] Last Admin: 09/01/16 08:33 Dose: 20 mg Ampicillin Sodium/Sulbactam (Sodium 1.5 gm/ Sodium Chloride) 100 mls @ 100 mls/ hr IVPB 0600,1200,1800,0000 [facility] Last Admin: 09/01/16 05:45 Dose: 100 mls/hr Lactic Acid (Lac-Hydrin 12% Lotion (225 G)) 1 applic TOP BID [facility] Last Admin: 09/01/16 08:33 Dose: 1 applic Latanoprost (Xalatan Opht) 1 drop OS HS [facility] Multivitamins/Minerals (Therapeutic-M Tab) 1 tab PO DAILY [facility] Last Admin: 09/01/16 08:34 Dose: 1 tab Pantoprazole Sodium (Protonix Ec Tab) 40 mg PO DAILY [facility] Last Admin: 09/01/16 08:34 Dose: 40 mg Potassium Chloride (K-Dur 20 Meq Er Tab) 20 meq PO DAILY [facility] Last Admin: 09/01/16 08:33 Dose: 20 meq Prednisone (Prednisone Tab) 10 mg PO DAILY [facility]
[2016-09-01] MEDS: Albuterol 0.083% Inhal Sol (2.5 mg/3 mL) UD INH SCH ×3 (11:22→20:05)
--- NOTE | 2016-09-01 11:39 | CP.PCM.PN ---
Subjective - Date & Time of Evaluation Date of Evaluation: 09/01/16 Time of Evaluation: 11:10 - Subjective Subjective: PODIATRY PROGRESS NOTE FOR DR. CR: 86 yo female pt seen at bedside in TCU with Dr. Cr for f/u of bilateral foot pain and bilateral LE chronic venous stasis. Pt seen resting comfortably in bedside chair at time of visit. Says she still has pain in the heels today, denies any calf pain. Denies f/n/v/c/sob/cp at this time. Denies any burning numbness or tingling to the feet/legs. Objective - Vital Signs/Intake and Output Vital Signs (last 24 hours): Temp Pulse Resp BP Pulse Ox 97.8 F 90 20 120/65 97 09/01/16 08:09 09/01/16 08:09 09/01/16 08:09 09/01/16 08:33 09/01/16 08:09 - Medications Medications: Current Medications Acetazolamide (Diamox 250 Mg Tab) 250 mg PO DAILY [facility] Last Admin: 09/01/16 08:33 Dose: 250 mg Albuterol Sulfate (Albuterol 0.083% Inhal Christi (2.5 Mg/3 Ml) Ud) 2.5 mg INH RQID [facility] Last Admin: 09/01/16 11:22 Dose: 2.5 mg Albuterol Sulfate (Albuterol 0.083% Inhal [place]i (2.5 Mg/3 Ml) Ud) 2.5 mg INH RQ4 PRN PRN Reason: Shortness of Breath Apixaban (Eliquis) 2.5 mg PO BID [facility] PRN Reason: Protocol Last Admin: 09/01/16 08:33 Dose: 2.5 mg Brimonidine Tartrate (Alphagan 0.2% Opht) 1 drop OS BID [facility] Last Admin: 09/01/16 08:32 Dose: 1 drop Budesonide (Pulmicort Respules) 0.5 mg IH RBID [facility] Clotrimazole (Lotrimin 1% Cream) 1 applic TOP BID [facility] Dorzolamide HCl (Trusopt) 1 drop OU TID [facility] Last Admin: 09/01/16 08:34 Dose: 1 drop Folic Acid (Folic Acid) 1 mg PO DAILY [facility] Last Admin: 09/01/16 08:33 Dose: 1 mg Furosemide (Lasix) 20 mg PO DAILY [facility] Last Admin: 09/01/16 08:33 Dose: 20 mg Ampicillin Sodium/Sulbactam (Sodium 1.5 gm/ Sodium Chloride) 100 mls @ 100 mls/ hr IVPB 0600,1200,1800,0000 [facility] Last Admin: 09/01/16 11:21 Dose: 100 mls/hr Lactic Acid (Lac-Hydrin 12% Lotion (225 G)) 1 applic TOP BID [facility] Last Admin: 09/01/16 08:33 Dose: 1 applic Latanoprost (Xalatan Opht) 1 drop OS HS [facility] Multivitamins/Minerals (Therapeutic-M Tab) 1 tab PO DAILY [facility] Last Admin: 09/01/16 08:34 Dose: 1 tab Pantoprazole Sodium (Protonix Ec Tab) 40 mg PO DAILY [facility] Last Admin: 09/01/16 08:34 Dose: 40 mg Potassium Chloride (K-Dur 20 Meq Er Tab) 20 meq PO DAILY [facility] Last Admin: 09/01/16 08:33 Dose: 20 meq Prednisone (Prednisone Tab) 10 mg PO DAILY [facility] Last Admin: 09/01/16 10:53 Dose: 10 mg - Constitutional Appears: Non-toxic, No Acute Distress - Extremities Exam Additional comments: Bilateral lower extremity examination: Vascular: DP pulse 1/4; PT pulse non-palpable; CFT 4 sec x10; skin temp is wnl Neuro: gross pedal sensation is intact bl Derm: bilateral lower extremity cellulitis is noted approximately 10cm distal to both knee joints and extending distally to the toes bilaterally with blanching noted; mild dorsal foot 1+ pitting edema is present bilaterally; diffuse xerosis is noted to bilateral legs and plantar foot (much improved though); skin changes associated with chronic stasis noted to bilateral legs; no open wounds or breaks in the skin evident at this time Ortho: tenderness to plantar aspect of heels bl, diffuse anterior leg tenderness bl, no calf pain bl - Neurological Exam Neurological Exam: Alert, Awake, Oriented x3 - Psychiatric Exam Psychiatric exam: Normal Affect, Normal Mood Assessment and Plan - Assessment and Plan (Free Text) Assessment: 86 y/o female with bilateral lower extremity chronic venous stasis w/cellulitis (improving); bilateral heel pain Plan: Patient seen and evaluated w/ Dr. Cr present Labs and vitals reviewed: WBC 8.5, afebrile Bilateral LE venous duplex neg for DVT Blood cx negative x 2 Lotrisone cream reordered. to be applied to legs bid C/w ammonium lactate to feet bl bid Will re-order Prevalon boots, to be worn by the patient at all times while in bed in order to offload the heels and alleviate pain c/w IV abx (unasyn) per primary Addressed all questions and concerns with patient. Discussed care with TCU nurse [facility] to follow while patient remains in house
[2016-09-01] MEDS ORDERED: Levalbuterol 1.25 MG/3 ML Inhal Soln UD IH SCH (16:00)
--- NOTE | 2016-09-01 16:54 | CP.PCM.HP ---
History of Present Illness - History of Present Illness History of Present Illness: 86 yo female with history of COPD, AFib with pacemaker, CAD, HTN, GERD and Chronic Leg Edema secondary to venous stasis came in because of marked swelling and intense redness of both legs (look like cooked lobster). Although patient did not complain of SOB or AMS, her PCO2 has been way up. Pt was put on IV Unasyn and low rate Bipap. She did well with the redness and swelling of the legs subsiding and PCO2 also dropping. Pt was recommended to continue IV Unasyn and so she was moved to TCU. Present on Admission - Present on Admission Any Indicators Present on Admission: No History of DVT/PE: No History of Uncontrolled Diabetes: No Urinary Catheter: No Decubitus Ulcer Present: No Review of Systems - Review of Systems All systems: reviewed and no additional remarkable complaints except (aside from those mentioned, 12 point system review were negative by me) Past Patient History - Infectious Disease Hx of Infectious Diseases: None - Tetanus Immunizations Tetanus Immunization: Unknown - Past Medical History & Family History Past Medical History?: Yes - Past Social History Smoking Status: Never Smoked Chewing Tobacco Use: No Cigar Use: No Alcohol: None Drugs: Denies Home Situation {Lives}: Alone - CARDIAC Hx Atrial Fibrillation: Yes Hx Cardia Arrhythmia: Yes Hx Congestive Heart Failure: No Hx Hypercholesterolemia: No Hx Hypertension: Yes Hx Pacemaker: Yes Hx Peripheral Edema: Yes - PULMONARY Hx Asthma: Yes Hx Bronchitis: Yes Hx Chronic Obstructive Pulmonary Disease (COPD): Yes Hx Emphysema: Yes Hx Pneumonia: Yes - NEUROLOGICAL Hx Neurological Disorder: No - HEENT Hx HEENT Problems: Yes Hx Glaucoma: Yes Other/Comment: Hx Retina surgery Right Eye - RENAL Hx Chronic Kidney Disease: No - ENDOCRINE/METABOLIC Hx Hyperthyroidism: Yes (subtotal thyroidectomy) Hx Hypothyroidism: No - HEMATOLOGICAL/ONCOLOGICAL Hx Human Immunodeficiency Virus (HIV): No - INTEGUMENTARY Hx Dermatological Problems: Yes Hx Cellulitis: Yes Other/Comment: Chronic venous insufficiency of both lower extremities with ulceration in the right pretibial area - MUSCULOSKELETAL/RHEUMATOLOGICAL Hx Arthritis: No Hx Falls: No Hx Fractures: Yes (Left femur) Hx Rheumatoid Arthritis: No - GASTROINTESTINAL Hx Gastrointestinal Disorders: Yes Hx Gastroesophageal Reflux: Yes - GENITOURINARY/GYNECOLOGICAL Hx Genitourinary Disorders: No - PSYCHIATRIC Hx Anxiety: Yes Hx Substance Use: No - SURGICAL HISTORY Hx Appendectomy: Yes Hx Cholecystectomy: Yes - ANESTHESIA Hx Anesthesia: Yes Hx Anesthesia Reactions: Yes Hx Malignant Hyperthermia: No Has any member of the family had a problem w/ anesthesia?: No Meds Allergies/Adverse Reactions: Allergies Allergy/AdvReac Type Severity Reaction Status Date / Time codeine Allergy DIZZINESS Verified 06/25/16 15:55 iodine Allergy SHORTNESS Verified 06/25/16 15:55 OF BREATH lidocaine Allergy RASH Verified 06/25/16 15:55 Sulfa (Sulfonamide Allergy RASH Verified 06/25/16 15:55 Antibiotics) levofloxacin [From Levaquin] AdvReac PALPITATION Verified 06/25/16 15:55 S anesthesia Allergy SHORTNESS Uncoded 06/25/16 15:55 OF BREATH Physical Exam - Constitutional Appears: No Acute Distress - Head Exam Head Exam: ATRAUMATIC - Eye Exam Eye Exam: absent: Scleral icterus - ENT Exam ENT Exam: Mucous Membranes Moist - Neck Exam Neck exam: Negative for: Meningismus - Respiratory Exam Respiratory Exam: Decreased Breath Sounds. absent: Wheezes, Respiratory Distress - Cardiovascular Exam Cardiovascular Exam: REGULAR RHYTHM, +S1, +S2 - GI/Abdominal Exam GI & Abdominal Exam: Soft. absent: Tenderness - Rectal Exam Rectal Exam: Deferred - Extremities Exam Extremities exam: Positive for: pedal edema. Negative for: tenderness - Back Exam Back exam: absent: tenderness - Neurological Exam Neurological exam: Alert, Oriented x3 - Psychiatric Exam Psychiatric exam: Normal Affect - Skin Skin Exam: Dry, Intact Results - Vital Signs Recent Vital Signs: Last Vital Signs Temp 98.2 F 09/01/16 16:09 Pulse 70 09/01/16 16:09 Resp 20 09/01/16 16:09 BP 124/58 L 09/01/16 16:09 Pulse Ox 99 09/01/16 16:09 Assessment & Plan (1) Bilateral lower leg cellulitis Status: Acute (2) Hypercarbia Status: Acute (3) COPD (chronic obstructive pulmonary disease) Status: Chronic Priority: High (4) DVT prophylaxis Status: Acute Priority: Medium - Assessment and Plan (Free Text) Assessment: 86 yo female with history of COPD, AFib, pacemaker insertion, CAD, HTN, GERD and Chronic Leg Edema secondary to venous stasis came in because of marked swelling and intensed redness of both legs (like red lobster). Although patient did not complain of SOB or AMS, her PCO2 has been way up. Pt was put on IV Unasyn and low rate Bipap. She did well with the redness and the swelling subsiding. The PCO2 also has been dropping. Pt was recommended to continue IV Unasyn and so she was moved to TCU. (1) Cellulitis of lower extremity blood culture: no growth on Unasyn IV q 6hrs legs less swollen and appeared wrinkly and scaly, erythema fading (2) Hypercarbia continue Bipap on low setting. (3) COPD (chronic obstructive pulmonary disease) resume home meds. pulmonary consult with Dr Mack (4) DVT prophylaxis on Apixaban for AFib
[2016-09-01] MEDS: Budesonide 0.5 mg/2 ml Inhal Susp UD IH SCH (20:05)
[2016-09-01] MEDS: Latanoprost 0.005% Opht SOUTION OS SCH (21:19)
[2016-09-02] MEDS: Ampicillin/Sulbactam 1.5 GM in Sodium Chloride 0.9% 100 ML IVPB SCH ×5 (00:24→23:42)
[2016-09-02 06:08] LABS: BLOOD UREA NITROGEN 21 mg/dl (7-17); CALCIUM 8.7 mg/dL (8.4-10.2); CHLORIDE 90 mmol/L (98-107); GFR AFRICAN-AMERICAN > 60; GLUCOSE,RANDOM 80 mg/dL (65-105); POTASSIUM 3.8 MMOL/L (3.6-5.0); SODIUM 141 mmol/l (132-148)
[2016-09-02 06:35] LABS: CARBON DIOXIDE 42 mmol/L (22-30)
[2016-09-02] MEDS: Albuterol 0.083% Inhal Sol (2.5 mg/3 mL) UD INH SCH ×4 (07:34→19:51)
[2016-09-02] MEDS: Budesonide 0.5 mg/2 ml Inhal Susp UD IH SCH (07:35)
[2016-09-02] MEDS: Brimonidine 0.2% 50 DROP/5 ML BOTTLE OS SCH ×2 (08:24→17:25)
[2016-09-02] MEDS: Potassium Chloride 20 mEq ER Tab PO SCH (08:25)
[2016-09-02] MEDS: Dorzolamide 2% Ophth Soln OU SCH ×3 (08:26→17:25)
[2016-09-02] MEDS: Pantoprazole 40 mg EC Tab PO SCH (08:26)
[2016-09-02] MEDS: Multivitamin With Minerals Tab PO SCH (08:26)
--- NOTE | 2016-09-02 11:01 | CP.PCM.PN ---
Subjective - Date & Time of Evaluation Date of Evaluation: 09/02/16 Time of Evaluation: 10:57 - Subjective Subjective: Awake and alert, more so than yesterday. Sitting up in bed finishing her breakfast. Offers no complaints of shortness of breath or cough. Both lower extremities look better, decreased edema as well as erythema. Participating in physical therapy. Objective - Vital Signs/Intake and Output Vital Signs (last 24 hours): Temp Pulse Resp BP Pulse Ox 98.4 F 75 20 126/52 L 98 09/02/16 07:51 09/02/16 07:51 09/02/16 07:51 09/02/16 08:25 09/02/16 07:51 - Medications Medications: Current Medications Acetazolamide (Diamox 250 Mg Tab) 250 mg PO DAILY [facility] Last Admin: 09/02/16 08:25 Dose: 250 mg Albuterol Sulfate (Albuterol 0.083% Inhal Christi (2.5 Mg/3 Ml) Ud) 2.5 mg INH RQID [facility] Last Admin: 09/02/16 07:34 Dose: 2.5 mg Albuterol Sulfate (Albuterol 0.083% Inhal [place] (2.5 Mg/3 Ml) Ud) 2.5 mg INH RQ4 PRN PRN Reason: Shortness of Breath Apixaban (Eliquis) 2.5 mg PO BID [facility] PRN Reason: Protocol Last Admin: 09/02/16 08:25 Dose: 2.5 mg Brimonidine Tartrate (Alphagan 0.2% Opht) 1 drop OS BID [facility] Last Admin: 09/02/16 08:24 Dose: 1 drop Budesonide (Pulmicort Respules) 0.5 mg IH RBID [facility] Last Admin: 09/02/16 07:35 Dose: 0.5 mg Clotrimazole (Lotrimin 1% Cream) 1 applic TOP BID [facility] Last Admin: 09/02/16 08:24 Dose: 1 applic Dorzolamide HCl (Trusopt) 1 drop OU TID [facility] Last Admin: 09/02/16 08:26 Dose: 1 drop Folic Acid (Folic Acid) 1 mg PO DAILY [facility] Last Admin: 09/02/16 08:25 Dose: 1 mg Furosemide (Lasix) 20 mg PO DAILY [facility] Last Admin: 09/02/16 08:25 Dose: 20 mg Ampicillin Sodium/Sulbactam (Sodium 1.5 gm/ Sodium Chloride) 100 mls @ 100 mls/ hr IVPB 0600,1200,1800,0000 [facility] Last Admin: 09/02/16 05:32 Dose: 100 mls/hr Lactic Acid (Lac-Hydrin 12% Lotion (225 G)) 1 applic TOP BID [facility] Last Admin: 09/02/16 08:26 Dose: 1 applic Latanoprost (Xalatan Opht) 1 drop OS HS [facility] Last Admin: 09/01/16 21:19 Dose: 1 drop Multivitamins/Minerals (Therapeutic-M Tab) 1 tab PO DAILY [facility] Last Admin: 09/02/16 08:26 Dose: 1 tab Pantoprazole Sodium (Protonix Ec Tab) 40 mg PO DAILY [facility] Last Admin: 09/02/16 08:26 Dose: 40 mg Potassium Chloride (K-Dur 20 Meq Er Tab) 20 meq PO DAILY [facility] Last Admin: 09/02/16 08:25 Dose: 20 meq Prednisone (Prednisone Tab) 10 mg PO DAILY [facility] Last Admin: 09/02/16 08:26 Dose: 10 mg - Labs Labs: 09/02/16 05:30
[2016-09-02] MEDS: Latanoprost 0.005% Opht SOUTION OS SCH (21:25)
[2016-09-03] MEDS: Albuterol 0.083% Inhal Sol (2.5 mg/3 mL) UD INH PRN (05:19)
[2016-09-03] MEDS: Ampicillin/Sulbactam 1.5 GM in Sodium Chloride 0.9% 100 ML IVPB SCH ×3 (05:42→17:03)
[2016-09-03] MEDS: Albuterol 0.083% Inhal Sol (2.5 mg/3 mL) UD INH SCH ×4 (07:22→19:51)
[2016-09-03] MEDS: Budesonide 0.5 mg/2 ml Inhal Susp UD IH SCH (07:22)
--- NOTE | 2016-09-03 09:25 | CP.PCM.PN ---
Subjective - Date & Time of Evaluation Date of Evaluation: 09/03/16 Time of Evaluation: 09:21 - Subjective Subjective: Interim entries in EMR noted. Was somewhat somnolent yesterday and was placed back on BiPAP with improved mentation. Using BiPAP overnight as directed. Awake this morning, claims she doesn't feel very hungry today. Rock ALLAN reported two days ago, will add senna/docusate at bedtime. Vital signs remain stable. Remains on Unasyn. Acetazolamide increased to 250MG BID. Repeat labs in the AM. Objective - Vital Signs/Intake and Output Vital Signs (last 24 hours): Temp Pulse Resp BP Pulse Ox 97.9 F 73 18 130/64 99 09/03/16 08:06 09/03/16 08:06 09/03/16 08:06 09/03/16 08:06 09/03/16 08:06 - Medications Medications: Current Medications Acetazolamide (Diamox 250 Mg Tab) 250 mg PO BID [facility] Albuterol Sulfate (Albuterol 0.083% Inhal Christi (2.5 Mg/3 Ml) Ud) 2.5 mg INH RQID [facility] Last Admin: 09/03/16 07:22 Dose: 2.5 mg Albuterol Sulfate (Albuterol 0.083% Inhal [place] (2.5 Mg/3 Ml) Ud) 2.5 mg INH RQ4 PRN PRN Reason: Shortness of Breath Last Admin: 09/03/16 05:19 Dose: 2.5 mg Apixaban (Eliquis) 2.5 mg PO BID [facility] PRN Reason: Protocol Last Admin: 09/02/16 17:25 Dose: 2.5 mg Brimonidine Tartrate (Alphagan 0.2% Opht) 1 drop OS BID [facility] Last Admin: 09/02/16 17:25 Dose: 1 drop Budesonide (Pulmicort Respules) 0.5 mg IH RBID [facility] Last Admin: 09/03/16 07:22 Dose: 0.5 mg Clotrimazole (Lotrimin 1% Cream) 1 applic TOP BID [facility] Last Admin: 09/02/16 17:26 Dose: 1 applic Dorzolamide HCl (Trusopt) 1 drop OU TID [facility] Last Admin: 09/02/16 17:25 Dose: 1 drop Folic Acid (Folic Acid) 1 mg PO DAILY [facility] Last Admin: 09/02/16 08:25 Dose: 1 mg Furosemide (Lasix) 20 mg PO DAILY [facility] Last Admin: 09/02/16 08:25 Dose: 20 mg Ampicillin Sodium/Sulbactam (Sodium 1.5 gm/ Sodium Chloride) 100 mls @ 100 mls/ hr IVPB 0600,1200,1800,0000 [facility] Last Admin: 09/03/16 05:42 Dose: 100 mls/hr Lactic Acid (Lac-Hydrin 12% Lotion (225 G)) 1 applic TOP BID [facility] Last Admin: 09/02/16 17:26 Dose: 1 applic Latanoprost (Xalatan Opht) 1 drop OS HS [facility] Last Admin: 09/02/16 21:25 Dose: 1 drop Multivitamins/Minerals (Therapeutic-M Tab) 1 tab PO DAILY [facility] Last Admin: 09/02/16 08:26 Dose: 1 tab Pantoprazole Sodium (Protonix Ec Tab) 40 mg PO DAILY [facility] Last Admin: 09/02/16 08:26 Dose: 40 mg Potassium Chloride (K-Dur 20 Meq Er Tab) 20 meq PO DAILY [facility] Last Admin: 09/02/16 08:25 Dose: 20 meq Prednisone (Prednisone Tab) 10 mg PO DAILY [facility] Stop: 09/03/16 23:59 Last Admin: 09/02/16 08:26 Dose: 10 mg Prednisone (Prednisone Tab) 5 mg PO DAILY [facility] Senna/Docusate Sodium (Senokot S 50 Mg-8.6 Mg) 2 tab PO HS [facility] - Labs Labs: 09/02/16 05:30
[2016-09-03] MEDS: Pantoprazole 40 mg EC Tab PO SCH (09:33)
[2016-09-03] MEDS: Brimonidine 0.2% 50 DROP/5 ML BOTTLE OS SCH ×2 (09:33→16:53)
[2016-09-03] MEDS: Potassium Chloride 20 mEq ER Tab PO SCH (09:33)
[2016-09-03] MEDS: Multivitamin With Minerals Tab PO SCH (09:34)
[2016-09-03] MEDS: Dorzolamide 2% Ophth Soln OU SCH ×3 (09:38→17:02)
--- NOTE | 2016-09-03 17:45 | CP.PCM.PN ---
Subjective - Date & Time of Evaluation Date of Evaluation: 09/03/16 Time of Evaluation: 17:30 - Subjective Subjective: PODIATRY PROGRESS NOTE FOR DR. CR: 86 yo female pt seen at bedside in TCU for f/u of bilateral foot pain and bilateral LE chronic venous stasis. Pt seen resting comfortably in bed at time of visit with CPAP. Says she still has pain to the heels today but it is better. Denies calf pain. Denies f/n/v/c/sob/cp at this time. Denies any burning numbness or tingling to the feet/legs. Objective - Vital Signs/Intake and Output Vital Signs (last 24 hours): Temp Pulse Resp BP Pulse Ox 96.6 F L 80 20 137/65 95 09/03/16 15:44 09/03/16 16:02 09/03/16 15:44 09/03/16 15:44 09/03/16 15:44 - Medications Medications: Current Medications Acetazolamide (Diamox 250 Mg Tab) 250 mg PO BID [facility] Last Admin: 09/03/16 16:54 Dose: 250 mg Albuterol Sulfate (Albuterol 0.083% Inhal Christi (2.5 Mg/3 Ml) Ud) 2.5 mg INH RQID [facility] Last Admin: 09/03/16 15:27 Dose: 2.5 mg Albuterol Sulfate (Albuterol 0.083% Inhal [place]i (2.5 Mg/3 Ml) Ud) 2.5 mg INH RQ4 PRN PRN Reason: Shortness of Breath Last Admin: 09/03/16 05:19 Dose: 2.5 mg Apixaban (Eliquis) 2.5 mg PO BID [facility] PRN Reason: Protocol Last Admin: 09/03/16 16:54 Dose: 2.5 mg Brimonidine Tartrate (Alphagan 0.2% Opht) 1 drop OS BID [facility] Last Admin: 09/03/16 16:53 Dose: 1 drop Budesonide (Pulmicort Respules) 0.5 mg IH RBID [facility] Last Admin: 09/03/16 07:22 Dose: 0.5 mg Clotrimazole (Lotrimin 1% Cream) 1 applic TOP BID [facility] Last Admin: 09/03/16 17:10 Dose: 1 applic Dorzolamide HCl (Trusopt) 1 drop OU TID [facility] Last Admin: 09/03/16 17:02 Dose: 1 drop Folic Acid (Folic Acid) 1 mg PO DAILY [facility] Last Admin: 09/03/16 09:33 Dose: 1 mg Furosemide (Lasix) 20 mg PO DAILY [facility] Last Admin: 09/03/16 09:34 Dose: 20 mg Ampicillin Sodium/Sulbactam (Sodium 1.5 gm/ Sodium Chloride) 100 mls @ 100 mls/ hr IVPB 0600,1200,1800,0000 [facility] Last Admin: 09/03/16 17:03 Dose: 100 mls/hr Lactic Acid (Lac-Hydrin 12% Lotion (225 G)) 1 applic TOP BID [facility] Last Admin: 09/03/16 17:10 Dose: 1 applic Latanoprost (Xalatan Opht) 1 drop OS HS [facility] Last Admin: 09/02/16 21:25 Dose: 1 drop Multivitamins/Minerals (Therapeutic-M Tab) 1 tab PO DAILY [facility] Last Admin: 09/03/16 09:34 Dose: 1 tab Pantoprazole Sodium (Protonix Ec Tab) 40 mg PO DAILY [facility] Last Admin: 09/03/16 09:33 Dose: 40 mg Potassium Chloride (K-Dur 20 Meq Er Tab) 20 meq PO DAILY [facility] Last Admin: 09/03/16 09:33 Dose: 20 meq Prednisone (Prednisone Tab) 10 mg PO DAILY [facility] Stop: 09/03/16 23:59 Last Admin: 09/03/16 09:34 Dose: 10 mg Prednisone (Prednisone Tab) 5 mg PO DAILY [facility] Senna/Docusate Sodium (Senokot S 50 Mg-8.6 Mg) 2 tab PO HS [facility] - Labs Labs: 09/02/16 05:30 - Constitutional Appears: Non-toxic, No Acute Distress - Extremities Exam Extremities Exam: absent: Calf Tenderness Additional comments: Bilateral lower extremity examination: Vascular: DP pulse 1/4; PT pulse non-palpable; CFT 4 sec x10; skin temp is wnl Neuro: gross pedal sensation is intact bl Derm: erythema to lower extremities mostly resolved; mild dorsal foot 1+ pitting edema is present bilaterally; diffuse xerosis is noted to bilateral legs and plantar foot (much improved though); skin changes associated with chronic stasis noted to bilateral legs; no open wounds or breaks in the skin evident at this time Ortho: tenderness to plantar aspect of heels bl, diffuse anterior leg tenderness bl, no calf pain bl - Neurological Exam Neurological Exam: Alert, Awake, Oriented x3 - Psychiatric Exam Psychiatric exam: Normal Affect, Normal Mood Assessment and Plan - Assessment and Plan (Free Text) Assessment: 86 y/o female with bilateral lower extremity chronic venous stasis w/cellulitis (resolved); bilateral heel pain Plan: Patient seen and evaluated at bedside Plan discussed with Dr. Cr Labs and vitals reviewed: WBC 8.5, afebrile Bilateral LE venous duplex neg for DVT Blood cx negative x 2 c/w lotrisone to legs bilateral bid, ammonium lactate to feet bl bid Prevalon boot to be worn at all times while in bed c/w IV abx (unasyn) per primary Stable per podiatry Podiatry to follow while patient remains in house
[2016-09-04] MEDS: Docusate-Senna 50 mg-8.6 mg Tab PO SCH ×2 (00:17→21:31)
[2016-09-04] MEDS: Latanoprost 0.005% Opht SOUTION OS SCH ×2 (00:17→21:30)
[2016-09-04] MEDS: Ampicillin/Sulbactam 1.5 GM in Sodium Chloride 0.9% 100 ML IVPB SCH ×4 (00:22→18:16)
[2016-09-04] MEDS: Albuterol 0.083% Inhal Sol (2.5 mg/3 mL) UD INH SCH ×4 (07:22→19:33)
[2016-09-04] MEDS: Budesonide 0.5 mg/2 ml Inhal Susp UD IH SCH ×3 (07:22→19:34)
[2016-09-04 07:46] LABS: BLOOD UREA NITROGEN 18 mg/dl (7-17); CALCIUM 9.1 mg/dL (8.4-10.2); CHLORIDE 90 mmol/L (98-107); GFR AFRICAN-AMERICAN > 60; GLUCOSE,RANDOM 94 mg/dL (65-105); POTASSIUM 4.4 MMOL/L (3.6-5.0); SODIUM 141 mmol/l (132-148)
[2016-09-04 08:12] LABS: CARBON DIOXIDE 43 mmol/L (22-30)
--- NOTE | 2016-09-04 09:28 | CP.PCM.PN ---
Subjective - Date & Time of Evaluation Date of Evaluation: 09/04/16 Time of Evaluation: 09:26 - Subjective Subjective: Interim events reviewed. She will need increased IPAP/EPAP as well as more time on BiPAP ventilation. Monitor TCO2 on regular basis. Objective - Vital Signs/Intake and Output Vital Signs (last 24 hours): Temp Pulse Resp BP Pulse Ox 96.6 F L 74 20 133/63 98 09/04/16 08:38 09/04/16 08:38 09/04/16 08:38 09/04/16 08:38 09/04/16 08:38 - Medications Medications: Current Medications Acetazolamide (Diamox 250 Mg Tab) 250 mg PO BID [facility] Last Admin: 09/03/16 16:54 Dose: 250 mg Albuterol Sulfate (Albuterol 0.083% Inhal [place]i (2.5 Mg/3 Ml) Ud) 2.5 mg INH RQID [facility] Last Admin: 09/04/16 07:22 Dose: 2.5 mg Albuterol Sulfate (Albuterol 0.083% Inhal [place] (2.5 Mg/3 Ml) Ud) 2.5 mg INH RQ4 PRN PRN Reason: Shortness of Breath Last Admin: 09/03/16 05:19 Dose: 2.5 mg Apixaban (Eliquis) 2.5 mg PO BID [facility] PRN Reason: Protocol Last Admin: 09/03/16 16:54 Dose: 2.5 mg Brimonidine Tartrate (Alphagan 0.2% Opht) 1 drop OS BID [facility] Last Admin: 09/03/16 16:53 Dose: 1 drop Budesonide (Pulmicort Respules) 0.5 mg IH RBID [facility] Last Admin: 09/04/16 07:22 Dose: 0.5 mg Clotrimazole (Lotrimin 1% Cream) 1 applic TOP BID [facility] Last Admin: 09/03/16 17:10 Dose: 1 applic Dorzolamide HCl (Trusopt) 1 drop OU TID [facility] Last Admin: 09/03/16 17:02 Dose: 1 drop Folic Acid (Folic Acid) 1 mg PO DAILY [facility] Last Admin: 09/03/16 09:33 Dose: 1 mg Furosemide (Lasix) 20 mg PO DAILY [facility] Last Admin: 09/03/16 09:34 Dose: 20 mg Ampicillin Sodium/Sulbactam (Sodium 1.5 gm/ Sodium Chloride) 100 mls @ 100 mls/ hr IVPB 0600,1200,1800,0000 [facility] Last Admin: 09/04/16 05:48 Dose: 100 mls/hr Lactic Acid (Lac-Hydrin 12% Lotion (225 G)) 1 applic TOP BID [facility] Last Admin: 09/03/16 17:10 Dose: 1 applic Latanoprost (Xalatan Opht) 1 drop OS HS [facility] Last Admin: 09/04/16 00:17 Dose: 1 drop Multivitamins/Minerals (Therapeutic-M Tab) 1 tab PO DAILY [facility] Last Admin: 09/03/16 09:34 Dose: 1 tab Pantoprazole Sodium (Protonix Ec Tab) 40 mg PO DAILY [facility] Last Admin: 09/03/16 09:33 Dose: 40 mg Potassium Chloride (K-Dur 20 Meq Er Tab) 20 meq PO DAILY [facility] Last Admin: 09/03/16 09:33 Dose: 20 meq Prednisone (Prednisone Tab) 5 mg PO DAILY [facility] Senna/Docusate Sodium (Senokot S 50 Mg-8.6 Mg) 2 tab PO HS [facility] Last Admin: 09/04/16 00:17 Dose: 2 tab - Labs Labs: 09/04/16 06:30
[2016-09-04] MEDS: Pantoprazole 40 mg EC Tab PO SCH (09:29)
[2016-09-04] MEDS: Potassium Chloride 20 mEq ER Tab PO SCH (09:29)
[2016-09-04] MEDS: Multivitamin With Minerals Tab PO SCH (09:29)
[2016-09-04] MEDS: Brimonidine 0.2% 50 DROP/5 ML BOTTLE OS SCH ×2 (09:30→16:36)
[2016-09-04] MEDS: Dorzolamide 2% Ophth Soln OU SCH ×3 (09:31→16:36)
[2016-09-04 13:35] LABS: MEAN CELL VOLUME 93.3 fl (81.0-99.0); MEAN CORPUSCULAR HEMOGLOBIN 26.7 pg (27.0-31.0); MEAN CORPUSCULAR HGB CONC 28.7 g/dL (33.0-37.0); RED CELL DISTRIBUTION WIDTH 17.3 % (11.5-14.5); WHITE BLOOD COUNT 10.9 K/uL (4.8-10.8)
[2016-09-05] MEDS: Ampicillin/Sulbactam 1.5 GM in Sodium Chloride 0.9% 100 ML IVPB SCH ×4 (01:30→17:07)
[2016-09-05] MEDS: Budesonide 0.5 mg/2 ml Inhal Susp UD IH SCH ×2 (07:37→19:10)
[2016-09-05] MEDS: Albuterol 0.083% Inhal Sol (2.5 mg/3 mL) UD INH SCH ×4 (07:37→19:11)
--- NOTE | 2016-09-05 09:13 | CP.PCM.PN ---
Subjective - Date & Time of Evaluation Date of Evaluation: 09/05/16 Time of Evaluation: 08:30 - Subjective Subjective: PODIATRY PROGRESS NOTE FOR DR. CR: 86 yo female pt seen at bedside in TCU for f/u of bilateral foot pain and bilateral LE chronic venous stasis. AAOx3 at time of visit, lethargic but easily arousable. Pt seen resting comfortably in bed at time of visit. Says legs feel much better today, still has some tenderness to shins. Prevalon offloading boots seen donned to both beet. Denies f/n/v/c/sob/cp overnight. Denies any other problems at this time. Objective - Vital Signs/Intake and Output Vital Signs (last 24 hours): Temp Pulse Resp BP Pulse Ox 97.5 F L 74 20 132/64 100 09/05/16 08:01 09/05/16 08:01 09/05/16 08:01 09/05/16 08:01 09/05/16 08:01 - Medications Medications: Current Medications Acetazolamide (Diamox 250 Mg Tab) 250 mg PO BID [facility] Last Admin: 09/04/16 16:35 Dose: 250 mg Albuterol Sulfate (Albuterol 0.083% Inhal [place] (2.5 Mg/3 Ml) Ud) 2.5 mg INH RQID [facility] Last Admin: 09/05/16 07:37 Dose: 2.5 mg Albuterol Sulfate (Albuterol 0.083% Inhal [place] (2.5 Mg/3 Ml) Ud) 2.5 mg INH RQ4 PRN PRN Reason: Shortness of Breath Last Admin: 09/03/16 05:19 Dose: 2.5 mg Apixaban (Eliquis) 2.5 mg PO BID [facility] PRN Reason: Protocol Last Admin: 09/04/16 16:35 Dose: 2.5 mg Brimonidine Tartrate (Alphagan 0.2% Opht) 1 drop OS BID [facility] Last Admin: 09/04/16 16:36 Dose: 1 drop Budesonide (Pulmicort Respules) 0.5 mg IH RBID [facility] Last Admin: 09/05/16 07:37 Dose: 0.5 mg Clotrimazole (Lotrimin 1% Cream) 1 applic TOP BID [facility] Last Admin: 09/04/16 16:38 Dose: 1 applic Dorzolamide HCl (Trusopt) 1 drop OU TID [facility] Last Admin: 09/04/16 16:36 Dose: 1 drop Folic Acid (Folic Acid) 1 mg PO DAILY [facility] Last Admin: 09/04/16 09:29 Dose: 1 mg Furosemide (Lasix) 20 mg PO DAILY [facility] Last Admin: 09/04/16 09:30 Dose: 20 mg Ampicillin Sodium/Sulbactam (Sodium 1.5 gm/ Sodium Chloride) 100 mls @ 100 mls/ hr IVPB 0600,1200,1800,0000 [facility] Last Admin: 09/05/16 05:07 Dose: 100 mls/hr Lactic Acid (Lac-Hydrin 12% Lotion (225 G)) 1 applic TOP BID [facility] Last Admin: 09/04/16 16:36 Dose: 1 applic Latanoprost (Xalatan Opht) 1 drop OS HS [facility] Last Admin: 09/04/16 21:30 Dose: 1 drop Multivitamins/Minerals (Therapeutic-M Tab) 1 tab PO DAILY [facility] Last Admin: 09/04/16 09:29 Dose: 1 tab Nystatin (Nystop Topical Powder) 1 applic TOP TID [facility] Stop: 09/18/16 17:00 Last Admin: 09/04/16 18:17 Dose: 1 appl Pantoprazole Sodium (Protonix Ec Tab) 40 mg PO DAILY [facility] Last Admin: 09/04/16 09:29 Dose: 40 mg Potassium Chloride (K-Dur 20 Meq Er Tab) 20 meq PO DAILY [facility] Last Admin: 09/04/16 09:29 Dose: 20 meq Prednisone (Prednisone Tab) 5 mg PO DAILY [facility] Last Admin: 09/04/16 09:29 Dose: 5 mg Senna/Docusate Sodium (Senokot S 50 Mg-8.6 Mg) 2 tab PO HS [facility] Last Admin: 09/04/16 21:31 Dose: 2 tab - Labs Labs: 09/04/16 06:30 09/04/16 06:30 - Constitutional Appears: Non-toxic, No Acute Distress - Extremities Exam Extremities Exam: absent: Calf Tenderness Additional comments: Bilateral lower extremity examination: Vascular: DP pulse 1/4; PT pulse non-palpable; CFT 4 sec x10; skin temp is wnl Neuro: gross pedal sensation is intact bl Derm: erythema to lower extremities mostly resolved; mild dorsal foot 1+ pitting edema is present bilaterally; xerosis to legs and feet resolved; skin changes associated with chronic stasis noted to bilateral legs; no open wounds or breaks in the skin evident at this time Ortho: tenderness to plantar aspect of heels bl, diffuse anterior leg tenderness bl, no calf pain bl - Neurological Exam Neurological Exam: Alert, Awake, Normal Gait - Psychiatric Exam Psychiatric exam: Normal Affect, Normal Mood Assessment and Plan - Assessment and Plan (Free Text) Assessment: 86 y/o female with bilateral lower extremity chronic venous stasis w/cellulitis (resolved); bilateral heel pain Plan: Patient seen and evaluated at bedside Plan discussed with Dr. Cr Labs and vitals reviewed: WBC 10.9, afebrile Bilateral LE venous duplex neg for DVT Blood cx negative x 2 c/w lotrisone to legs bilateral bid, ammonium lactate to feet bl bid Prevalon boot to be worn at all times while in bed c/w IV abx (unasyn) per primary Stable per podiatry Podiatry to follow while patient remains in house
[2016-09-05] MEDS: Potassium Chloride 20 mEq ER Tab PO SCH (09:47)
[2016-09-05] MEDS: Multivitamin With Minerals Tab PO SCH (09:47)
[2016-09-05] MEDS: Dorzolamide 2% Ophth Soln OU SCH ×3 (09:47→17:08)
[2016-09-05] MEDS: Pantoprazole 40 mg EC Tab PO SCH (09:47)
[2016-09-05] MEDS: Brimonidine 0.2% 50 DROP/5 ML BOTTLE OS SCH ×2 (09:55→17:22)
[2016-09-05 12:46] LABS: BLOOD UREA NITROGEN 19 mg/dl (7-17); CALCIUM 8.9 mg/dL (8.4-10.2); CHLORIDE 90 mmol/L (98-107); GFR AFRICAN-AMERICAN > 60; GLUCOSE,RANDOM 93 mg/dL (65-105); POTASSIUM 3.8 MMOL/L (3.6-5.0); SODIUM 140 mmol/l (132-148)
[2016-09-05 13:03] LABS: CARBON DIOXIDE 40 mmol/L (22-30)
[2016-09-05] MEDS: Latanoprost 0.005% Opht SOUTION OS SCH (21:21)
[2016-09-05] MEDS: Docusate-Senna 50 mg-8.6 mg Tab PO SCH (21:22)
[2016-09-06] MEDS: Ampicillin/Sulbactam 1.5 GM in Sodium Chloride 0.9% 100 ML IVPB SCH (00:41)
[2016-09-06] MEDS: Albuterol 0.083% Inhal Sol (2.5 mg/3 mL) UD INH PRN (01:59)
[2016-09-06] MEDS: Albuterol 0.083% Inhal Sol (2.5 mg/3 mL) UD INH SCH ×5 (07:29→19:22)
[2016-09-06] MEDS: Budesonide 0.5 mg/2 ml Inhal Susp UD IH SCH ×2 (07:30→19:22)
[2016-09-06] MEDS: Dorzolamide 2% Ophth Soln OU SCH ×3 (09:43→17:48)
[2016-09-06] MEDS: Pantoprazole 40 mg EC Tab PO SCH (09:44)
[2016-09-06] MEDS: Multivitamin With Minerals Tab PO SCH (09:44)
[2016-09-06] MEDS: Potassium Chloride 20 mEq ER Tab PO SCH (09:44)
[2016-09-06] MEDS: Brimonidine 0.2% 50 DROP/5 ML BOTTLE OS SCH ×2 (09:50→18:16)
[2016-09-06] MEDS: Latanoprost 0.005% Opht SOUTION OS SCH (21:35)
[2016-09-06] MEDS: Docusate-Senna 50 mg-8.6 mg Tab PO SCH (21:36)
[2016-09-07] MEDS: Albuterol 0.083% Inhal Sol (2.5 mg/3 mL) UD INH SCH ×4 (07:33→20:19)
[2016-09-07] MEDS: Budesonide 0.5 mg/2 ml Inhal Susp UD IH SCH ×2 (07:33→20:20)
[2016-09-07] MEDS: Multivitamin With Minerals Tab PO SCH (08:31)
[2016-09-07] MEDS: Potassium Chloride 20 mEq ER Tab PO SCH (08:32)
[2016-09-07] MEDS: Brimonidine 0.2% 50 DROP/5 ML BOTTLE OS SCH ×2 (08:32→17:01)
[2016-09-07] MEDS: Pantoprazole 40 mg EC Tab PO SCH (08:37)
[2016-09-07] MEDS: Dorzolamide 2% Ophth Soln OU SCH ×3 (08:47→17:03)
--- NOTE | 2016-09-07 15:34 | CP.PCM.PN ---
Subjective - Date & Time of Evaluation Date of Evaluation: 09/07/16 Time of Evaluation: 14:30 - Subjective Subjective: Pt seen and examined. No complaint of pain or swelling on both legs. Objective - Vital Signs/Intake and Output Vital Signs (last 24 hours): Temp Pulse Resp BP Pulse Ox 99 F 71 20 120/60 98 09/07/16 08:09 09/07/16 08:09 09/07/16 08:09 09/07/16 08:09 09/07/16 08:09 - Medications Medications: Current Medications Acetazolamide (Diamox 250 Mg Tab) 250 mg PO BID [facility] Last Admin: 09/07/16 08:37 Dose: 250 mg Albuterol Sulfate (Albuterol 0.083% Inhal [place] (2.5 Mg/3 Ml) Ud) 2.5 mg INH RQID [facility] Last Admin: 09/07/16 11:06 Dose: 2.5 mg Albuterol Sulfate (Albuterol 0.083% Inhal [place] (2.5 Mg/3 Ml) Ud) 2.5 mg INH RQ4 PRN PRN Reason: Shortness of Breath Last Admin: 09/06/16 01:59 Dose: 2.5 mg Apixaban (Eliquis) 2.5 mg PO BID [facility] PRN Reason: Protocol Last Admin: 09/07/16 08:32 Dose: 2.5 mg Brimonidine Tartrate (Alphagan 0.2% Opht) 1 drop OS BID [facility] Last Admin: 09/07/16 08:32 Dose: 1 drop Budesonide (Pulmicort Respules) 0.5 mg IH RBID [facility] Last Admin: 09/07/16 07:33 Dose: 0.5 mg Clotrimazole (Lotrimin 1% Cream) 1 applic TOP BID [facility] Last Admin: 09/07/16 08:46 Dose: 1 applic Dorzolamide HCl (Trusopt) 1 drop OU TID [facility] Last Admin: 09/07/16 08:47 Dose: 1 drop Doxycycline Hyclate (Doryx) 100 mg PO Q12 [facility] Folic Acid (Folic Acid) 1 mg PO DAILY [facility] Last Admin: 09/07/16 08:31 Dose: 1 mg Furosemide (Lasix) 20 mg PO DAILY [facility] Last Admin: 09/07/16 08:31 Dose: 20 mg Lactic Acid (Lac-Hydrin 12% Lotion (225 G)) 1 applic TOP BID [facility] Last Admin: 09/07/16 08:46 Dose: 1 applic Latanoprost (Xalatan Opht) 1 drop OS HS [facility] Last Admin: 09/06/16 21:35 Dose: 1 drop Modafinil (Provigil) 100 mg PO DAILY [facility] Nystatin (Nystop Topical Powder) 1 applic TOP TID [facility] Stop: 09/18/16 17:00 Last Admin: 09/07/16 12:48 Dose: 1 appl Pantoprazole Sodium (Protonix Ec Tab) 40 mg PO DAILY [facility] Last Admin: 09/07/16 08:37 Dose: 40 mg Potassium Chloride (K-Dur 20 Meq Er Tab) 20 meq PO DAILY [facility] Last Admin: 09/07/16 08:32 Dose: 20 meq Prednisone (Prednisone Tab) 5 mg PO DAILY [facility] Last Admin: 09/07/16 08:32 Dose: 5 mg Senna/Docusate Sodium (Senokot S 50 Mg-8.6 Mg) 2 tab PO HS [facility] Last Admin: 09/06/16 21:36 Dose: Not Given - Labs Labs: 09/04/16 06:30 09/05/16 11:40 - Constitutional Appears: No Acute Distress - Head Exam Head Exam: ATRAUMATIC - Eye Exam Eye Exam: absent: Scleral icterus - ENT Exam ENT Exam: Mucous Membranes Moist - Neck Exam Neck Exam: absent: Meningismus - Respiratory Exam Respiratory Exam: absent: Rhonchi, Wheezes - Cardiovascular Exam Cardiovascular Exam: REGULAR RHYTHM, +S1, +S2 - GI/Abdominal Exam GI & Abdominal Exam: Soft. absent: Tenderness - Rectal Exam Rectal Exam: Deferred - Extremities Exam Extremities Exam: absent: Pedal Edema (both legs with mild erythema; non-tender ) - Neurological Exam Neurological Exam: Alert, Oriented x3 - Psychiatric Exam Psychiatric exam: Normal Affect - Skin Skin Exam: Dry, Intact Assessment and Plan (1) Bilateral lower leg cellulitis Status: Acute (2) Hypercarbia Status: Chronic (3) COPD (chronic obstructive pulmonary disease) Status: Chronic (4) HTN (hypertension) Status: Chronic (5) Chronic atrial fibrillation Status: Chronic (6) Chronic diastolic CHF (congestive heart failure) Status: Chronic (7) DVT prophylaxis Status: Acute - Assessment and Plan (Free Text) Assessment: 86 yo female with history of COPD, AFib with pacemaker, CAD, HTN, GERD and Chronic Leg Edema secondary to venous stasis came in because of marked swelling and intense redness of both legs (look like red lobster). (1) Cellulitis of lower extremity improved received 10 day course of IV Zosyn and Vanco now on Doxycycline 100mg PO q 12hrs (2) Hypercarbia CO2 down to 40 continue Bipap on low setting. cont Acetazolomide Dr Mack on consult (3) COPD (chronic obstructive pulmonary disease) stable and asymptomatic resume home meds. (4) Hypertension BP stable continue Lasix (5) Chronic atrial fibrillation HR controlled continue Eliquis (6) Chronic diastolic CHF (congestive heart failure) continue Lasix (7) DVT prophylaxis on Apixaban
[2016-09-07] MEDS: Latanoprost 0.005% Opht SOUTION OS SCH (21:37)
[2016-09-07] MEDS: Docusate-Senna 50 mg-8.6 mg Tab PO SCH (22:11)
[2016-09-08 07:17] LABS: BLOOD UREA NITROGEN 13 mg/dl (7-17); CHLORIDE 93 mmol/L (98-107); GFR AFRICAN-AMERICAN > 60; GLUCOSE,RANDOM 81 mg/dL (65-105); POTASSIUM 3.6 MMOL/L (3.6-5.0); SODIUM 142 mmol/l (132-148)
[2016-09-08] MEDS: Budesonide 0.5 mg/2 ml Inhal Susp UD IH SCH ×2 (07:35→19:06)
[2016-09-08] MEDS: Albuterol 0.083% Inhal Sol (2.5 mg/3 mL) UD INH SCH ×4 (07:35→19:06)
[2016-09-08 07:53] LABS: CARBON DIOXIDE 40 mmol/L (22-30)
--- NOTE | 2016-09-08 08:12 | CP.PCM.PN ---
Subjective - Date & Time of Evaluation Date of Evaluation: 09/08/16 Time of Evaluation: 08:10 - Subjective Subjective: PODIATRY PROGRESS NOTE FOR DR. CR: 86 yo female pt seen at bedside in TCU for f/u of bilateral foot pain and bilateral LE chronic venous stasis. Pt seen resting comfortably in bed at time of visit, denies any acute events overnight. Seen using CPAP, multipodus boots seen donned to feet bl. Says legs feel better today and creams helping, has slight heel pain but improved. Denies f/n/v/c. Objective - Vital Signs/Intake and Output Vital Signs (last 24 hours): Temp Pulse Resp BP Pulse Ox 97.6 F 71 18 127/58 L 96 09/08/16 07:55 09/08/16 07:55 09/08/16 07:55 09/08/16 07:55 09/08/16 07:55 - Medications Medications: Current Medications Acetazolamide (Diamox 250 Mg Tab) 250 mg PO BID [facility] Last Admin: 09/07/16 16:58 Dose: 250 mg Albuterol Sulfate (Albuterol 0.083% Inhal [place] (2.5 Mg/3 Ml) Ud) 2.5 mg INH RQID [facility] Last Admin: 09/08/16 07:35 Dose: 2.5 mg Albuterol Sulfate (Albuterol 0.083% Inhal [place] (2.5 Mg/3 Ml) Ud) 2.5 mg INH RQ4 PRN PRN Reason: Shortness of Breath Last Admin: 09/06/16 01:59 Dose: 2.5 mg Apixaban (Eliquis) 2.5 mg PO BID [facility] PRN Reason: Protocol Last Admin: 09/07/16 16:58 Dose: 2.5 mg Brimonidine Tartrate (Alphagan 0.2% Opht) 1 drop OS BID [facility] Last Admin: 09/07/16 17:01 Dose: 1 drop Budesonide (Pulmicort Respules) 0.5 mg IH RBID [facility] Last Admin: 09/08/16 07:35 Dose: 0.5 mg Clotrimazole (Lotrimin 1% Cream) 1 applic TOP BID [facility] Last Admin: 09/07/16 16:58 Dose: 1 applic Dorzolamide HCl (Trusopt) 1 drop OU TID [facility] Last Admin: 09/07/16 17:03 Dose: 1 drop Doxycycline Hyclate (Doryx) 100 mg PO Q12 [facility] Last Admin: 09/07/16 21:37 Dose: 100 mg Folic Acid (Folic Acid) 1 mg PO DAILY [facility] Last Admin: 09/07/16 08:31 Dose: 1 mg Furosemide (Lasix) 20 mg PO DAILY [facility] Last Admin: 09/07/16 08:31 Dose: 20 mg Lactic Acid (Lac-Hydrin 12% Lotion (225 G)) 1 applic TOP BID [facility] Last Admin: 09/07/16 16:58 Dose: 1 applic Latanoprost (Xalatan Opht) 1 drop OS HS [facility] Last Admin: 09/07/16 21:37 Dose: 1 drop Modafinil (Provigil) 100 mg PO DAILY [facility] Last Admin: 09/07/16 17:00 Dose: 100 mg Multivitamins/Minerals (Therapeutic-M Tab) 1 tab PO DAILY [facility] Nystatin (Nystop Topical Powder) 1 applic TOP TID [facility] Stop: 09/18/16 17:00 Last Admin: 09/07/16 16:57 Dose: 1 appl Pantoprazole Sodium (Protonix Ec Tab) 40 mg PO DAILY [facility] Last Admin: 09/07/16 08:37 Dose: 40 mg Potassium Chloride (K-Dur 20 Meq Er Tab) 20 meq PO DAILY [facility] Last Admin: 09/07/16 08:32 Dose: 20 meq Prednisone (Prednisone Tab) 5 mg PO DAILY [facility] Last Admin: 09/07/16 08:32 Dose: 5 mg Senna/Docusate Sodium (Senokot S 50 Mg-8.6 Mg) 2 tab PO HS [facility] Last Admin: 09/07/16 22:11 Dose: Not Given - Labs Labs: 09/04/16 06:30 09/08/16 06:39 - Constitutional Appears: Non-toxic, No Acute Distress - Extremities Exam Extremities Exam: absent: Calf Tenderness Additional comments: Bilateral lower extremity examination: Vascular: DP pulse 1/4; PT pulse non-palpable; CFT 4 sec x10; skin temp is wnl Neuro: gross pedal sensation is intact bl Derm: erythema to lower extremities mostly resolved; mild dorsal foot 1+ pitting edema is present bilaterally; xerosis to legs and feet resolved; skin changes associated with chronic stasis noted to bilateral legs; no open wounds or breaks in the skin evident at this time Ortho: tenderness to plantar aspect of heels bl, diffuse anterior leg tenderness bl, no calf pain bl - Neurological Exam Neurological Exam: Alert, Awake, Oriented x3 - Psychiatric Exam Psychiatric exam: Normal Affect, Normal Mood Assessment and Plan - Assessment and Plan (Free Text) Assessment: 86 y/o female with bilateral lower extremity chronic venous stasis w/cellulitis (resolved); bilateral heel pain Plan: Patient seen and evaluated at bedside Plan discussed with Dr. Cr Labs and vitals reviewed: WBC 10.9, afebrile Bilateral LE venous duplex neg for DVT Blood cx negative x 2 c/w lotrisone to legs bilateral bid, ammonium lactate to feet bl bid Prevalon boot to be worn at all times while in bed Doxycycline 100mg po q12 per primary Stable per podiatry Podiatry to follow while patient remains in house f/u w. Dr. Cr as outpatient
[2016-09-08] MEDS: Brimonidine 0.2% 50 DROP/5 ML BOTTLE OS SCH ×2 (08:31→17:17)
[2016-09-08] MEDS: Pantoprazole 40 mg EC Tab PO SCH (08:32)
[2016-09-08] MEDS: Potassium Chloride 20 mEq ER Tab PO SCH (08:32)
[2016-09-08] MEDS: Multivitamin With Minerals Tab PO SCH (08:33)
[2016-09-08] MEDS: Dorzolamide 2% Ophth Soln OU SCH ×3 (08:35→17:17)
--- NOTE | 2016-09-08 10:03 | CP.PCM.PN ---
Subjective - Date & Time of Evaluation Date of Evaluation: 09/07/16 Time of Evaluation: 11:00 - Subjective Subjective: Discussed patient's condition with her son over the phone. She has a Trilogy ventilator at home which she received when released from [facility]. She also has oxygen from another home care provider. There is question to how these two systems are working when connected; the patient claims it does not work properly. I will reach out to the local company that supplies her oxygen and see if there is a way to resolve this. The patient herself favors the local oxygen supplier ([facility]). She has been overly somnolent as an effect of the CO2 retention despite using BiPAP ventilation. Modafanil will be added to her regimen on a trial basis to see if this will improve her wakefulness. She has been receiving acetazolamide 250MG twice daily and her TCO2 has decreased to 40. She may represent a failure using BiPAP and require continued use of Trilogy Home Ventilator. Objective - Vital Signs/Intake and Output Vital Signs (last 24 hours): Temp Pulse Resp BP Pulse Ox 97.6 F 71 18 127/89 96 09/08/16 07:55 09/08/16 07:55 09/08/16 07:55 09/08/16 08:32 09/08/16 07:55 - Medications Medications: Current Medications Acetazolamide (Diamox 250 Mg Tab) 250 mg PO BID [facility] Last Admin: 09/08/16 08:31 Dose: 250 mg Albuterol Sulfate (Albuterol 0.083% Inhal Christi (2.5 Mg/3 Ml) Ud) 2.5 mg INH RQID [facility] Last Admin: 09/08/16 07:35 Dose: 2.5 mg Albuterol Sulfate (Albuterol 0.083% Inhal Christi (2.5 Mg/3 Ml) Ud) 2.5 mg INH RQ4 PRN PRN Reason: Shortness of Breath Last Admin: 09/06/16 01:59 Dose: 2.5 mg Apixaban (Eliquis) 2.5 mg PO BID [facility] PRN Reason: Protocol Last Admin: 09/08/16 08:32 Dose: 2.5 mg Brimonidine Tartrate (Alphagan 0.2% Opht) 1 drop OS BID [facility] Last Admin: 09/08/16 08:31 Dose: 1 drop Budesonide (Pulmicort Respules) 0.5 mg IH RBID [facility] Last Admin: 09/08/16 07:35 Dose: 0.5 mg Clotrimazole (Lotrimin 1% Cream) 1 applic TOP BID [facility] Last Admin: 09/08/16 08:32 Dose: 1 applic Dorzolamide HCl (Trusopt) 1 drop OU TID [facility] Last Admin: 09/08/16 08:35 Dose: 1 drop Doxycycline Hyclate (Doryx) 100 mg PO Q12 [facility] Last Admin: 09/08/16 08:32 Dose: 100 mg Folic Acid (Folic Acid) 1 mg PO DAILY [facility] Last Admin: 09/08/16 08:32 Dose: 1 mg Furosemide (Lasix) 20 mg PO DAILY [facility] Last Admin: 09/08/16 08:32 Dose: 20 mg Lactic Acid (Lac-Hydrin 12% Lotion (225 G)) 1 applic TOP BID [facility] Last Admin: 09/08/16 08:32 Dose: 1 applic Latanoprost (Xalatan Opht) 1 drop OS HS [facility] Last Admin: 09/07/16 21:37 Dose: 1 drop Modafinil (Provigil) 100 mg PO DAILY [facility] Last Admin: 09/08/16 08:33 Dose: 100 mg Multivitamins/Minerals (Therapeutic-M Tab) 1 tab PO DAILY [facility] Last Admin: 09/08/16 08:33 Dose: 1 tab Nystatin (Nystop Topical Powder) 1 applic TOP TID [facility] Stop: 09/18/16 17:00 Last Admin: 09/08/16 08:32 Dose: 1 appl Pantoprazole Sodium (Protonix Ec Tab) 40 mg PO DAILY [facility] Last Admin: 09/08/16 08:32 Dose: 40 mg Potassium Chloride (K-Dur 20 Meq Er Tab) 20 meq PO DAILY [facility] Last Admin: 09/08/16 08:32 Dose: 20 meq Prednisone (Prednisone Tab) 5 mg PO DAILY [facility] Last Admin: 09/08/16 08:32 Dose: 5 mg Senna/Docusate Sodium (Senokot S 50 Mg-8.6 Mg) 2 tab PO HS [facility] Last Admin: 09/07/16 22:11 Dose: Not Given - Labs Labs: 09/04/16 06:30 09/08/16 06:39
--- NOTE | 2016-09-08 10:24 | CP.PCM.PN ---
Subjective - Date & Time of Evaluation Date of Evaluation: 09/08/16 Time of Evaluation: 10:15 - Subjective Subjective: Have discussed the problem of multiple DME suppliers with the patient, and I have contacted [employer] from [place]. This is the company that supplies her home O2, and the one she prefers. They are willing to supply the Trilogy Ventilator for her as well. I will contact the other supplier and ask them to remove the present ventilator from her home. Hopefully we can coordinate this process so she can be discharged tomorrow or the next day. Objective - Vital Signs/Intake and Output Vital Signs (last 24 hours): Temp Pulse Resp BP Pulse Ox 97.6 F 71 18 127/89 96 09/08/16 07:55 09/08/16 07:55 09/08/16 07:55 09/08/16 08:32 09/08/16 07:55 - Medications Medications: Current Medications Acetazolamide (Diamox 250 Mg Tab) 250 mg PO BID [facility] Last Admin: 09/08/16 08:31 Dose: 250 mg Albuterol Sulfate (Albuterol 0.083% Inhal Christi (2.5 Mg/3 Ml) Ud) 2.5 mg INH RQID [facility] Last Admin: 09/08/16 07:35 Dose: 2.5 mg Albuterol Sulfate (Albuterol 0.083% Inhal Christi (2.5 Mg/3 Ml) Ud) 2.5 mg INH RQ4 PRN PRN Reason: Shortness of Breath Last Admin: 09/06/16 01:59 Dose: 2.5 mg Apixaban (Eliquis) 2.5 mg PO BID [facility] PRN Reason: Protocol Last Admin: 09/08/16 08:32 Dose: 2.5 mg Brimonidine Tartrate (Alphagan 0.2% Opht) 1 drop OS BID [facility] Last Admin: 09/08/16 08:31 Dose: 1 drop Budesonide (Pulmicort Respules) 0.5 mg IH RBID [facility] Last Admin: 09/08/16 07:35 Dose: 0.5 mg Clotrimazole (Lotrimin 1% Cream) 1 applic TOP BID [facility] Last Admin: 09/08/16 08:32 Dose: 1 applic Dorzolamide HCl (Trusopt) 1 drop OU TID [facility] Last Admin: 09/08/16 08:35 Dose: 1 drop Doxycycline Hyclate (Doryx) 100 mg PO Q12 [facility] Last Admin: 09/08/16 08:32 Dose: 100 mg Folic Acid (Folic Acid) 1 mg PO DAILY [facility] Last Admin: 09/08/16 08:32 Dose: 1 mg Furosemide (Lasix) 20 mg PO DAILY [facility] Last Admin: 09/08/16 08:32 Dose: 20 mg Lactic Acid (Lac-Hydrin 12% Lotion (225 G)) 1 applic TOP BID [facility] Last Admin: 09/08/16 08:32 Dose: 1 applic Latanoprost (Xalatan Opht) 1 drop OS HS [facility] Last Admin: 09/07/16 21:37 Dose: 1 drop Modafinil (Provigil) 100 mg PO DAILY [facility] Last Admin: 09/08/16 08:33 Dose: 100 mg Multivitamins/Minerals (Therapeutic-M Tab) 1 tab PO DAILY [facility] Last Admin: 09/08/16 08:33 Dose: 1 tab Nystatin (Nystop Topical Powder) 1 applic TOP TID [facility] Stop: 09/18/16 17:00 Last Admin: 09/08/16 08:32 Dose: 1 appl Pantoprazole Sodium (Protonix Ec Tab) 40 mg PO DAILY [facility] Last Admin: 09/08/16 08:32 Dose: 40 mg Potassium Chloride (K-Dur 20 Meq Er Tab) 20 meq PO DAILY [facility] Last Admin: 09/08/16 08:32 Dose: 20 meq Prednisone (Prednisone Tab) 5 mg PO DAILY [facility] Last Admin: 09/08/16 08:32 Dose: 5 mg Senna/Docusate Sodium (Senokot S 50 Mg-8.6 Mg) 2 tab PO HS [facility] Last Admin: 09/07/16 22:11 Dose: Not Given - Labs Labs: 09/04/16 06:30 09/08/16 06:39
[2016-09-08] MEDS: Docusate-Senna 50 mg-8.6 mg Tab PO SCH (21:25)
[2016-09-08] MEDS: Latanoprost 0.005% Opht SOUTION OS SCH (21:26)
[2016-09-09] MEDS: Budesonide 0.5 mg/2 ml Inhal Susp UD IH SCH ×2 (07:51→19:41)
[2016-09-09] MEDS: Albuterol 0.083% Inhal Sol (2.5 mg/3 mL) UD INH SCH ×4 (07:51→19:41)
[2016-09-09] MEDS: Pantoprazole 40 mg EC Tab PO SCH (09:02)
[2016-09-09] MEDS: Potassium Chloride 20 mEq ER Tab PO SCH (09:02)
[2016-09-09] MEDS: Multivitamin With Minerals Tab PO SCH (09:02)
[2016-09-09] MEDS: Dorzolamide 2% Ophth Soln OU SCH ×3 (09:03→16:54)
[2016-09-09] MEDS: Brimonidine 0.2% 50 DROP/5 ML BOTTLE OS SCH ×2 (09:04→16:52)
--- NOTE | 2016-09-09 10:20 | CP.PCM.PN ---
Subjective - Date & Time of Evaluation Date of Evaluation: 09/09/16 Time of Evaluation: 10:18 - Subjective Subjective: Approval for home care has apparently been received. Plan for discharge tomorrow when her son comes in. Will call for removal of the previously supplied device after the new one is set up and running properly. Objective - Vital Signs/Intake and Output Vital Signs (last 24 hours): Temp Pulse Resp BP Pulse Ox 97.9 F 73 18 141/65 99 09/09/16 08:18 09/09/16 08:18 09/09/16 08:18 09/09/16 09:05 09/09/16 08:18 - Medications Medications: Current Medications Acetazolamide (Diamox 250 Mg Tab) 250 mg PO BID [facility] Last Admin: 09/09/16 09:03 Dose: 250 mg Albuterol Sulfate (Albuterol 0.083% Inhal Christi (2.5 Mg/3 Ml) Ud) 2.5 mg INH RQID [facility] Last Admin: 09/09/16 07:51 Dose: 2.5 mg Albuterol Sulfate (Albuterol 0.083% Inhal Christi (2.5 Mg/3 Ml) Ud) 2.5 mg INH RQ4 PRN PRN Reason: Shortness of Breath Last Admin: 09/06/16 01:59 Dose: 2.5 mg Apixaban (Eliquis) 2.5 mg PO BID [facility] PRN Reason: Protocol Last Admin: 09/09/16 09:04 Dose: 2.5 mg Brimonidine Tartrate (Alphagan 0.2% Opht) 1 drop OS BID [facility] Last Admin: 09/09/16 09:04 Dose: 1 drop Budesonide (Pulmicort Respules) 0.5 mg IH RBID [facility] Last Admin: 09/09/16 07:51 Dose: 0.5 mg Clotrimazole (Lotrimin 1% Cream) 1 applic TOP BID [facility] Last Admin: 09/09/16 09:04 Dose: 1 applic Dorzolamide HCl (Trusopt) 1 drop OU TID [facility] Last Admin: 09/09/16 09:03 Dose: 1 drop Doxycycline Hyclate (Doryx) 100 mg PO Q12 [facility] Last Admin: 09/09/16 09:02 Dose: 100 mg Folic Acid (Folic Acid) 1 mg PO DAILY [facility] Last Admin: 09/09/16 09:03 Dose: 1 mg Furosemide (Lasix) 20 mg PO DAILY [facility] Last Admin: 09/09/16 09:05 Dose: 20 mg Lactic Acid (Lac-Hydrin 12% Lotion (225 G)) 1 applic TOP BID [facility] Last Admin: 09/09/16 09:04 Dose: 1 applic Latanoprost (Xalatan Opht) 1 drop OS HS [facility] Last Admin: 09/08/16 21:26 Dose: 1 drop Modafinil (Provigil) 100 mg PO DAILY [facility] Last Admin: 09/09/16 09:07 Dose: 100 mg Multivitamins/Minerals (Therapeutic-M Tab) 1 tab PO DAILY [facility] Last Admin: 09/09/16 09:02 Dose: 1 tab Nystatin (Nystop Topical Powder) 1 applic TOP TID [facility] Stop: 09/18/16 17:00 Last Admin: 09/09/16 09:05 Dose: 1 appl Pantoprazole Sodium (Protonix Ec Tab) 40 mg PO DAILY [facility] Last Admin: 09/09/16 09:02 Dose: 40 mg Potassium Chloride (K-Dur 20 Meq Er Tab) 20 meq PO DAILY [facility] Last Admin: 09/09/16 09:02 Dose: 20 meq Prednisone (Prednisone Tab) 5 mg PO DAILY [facility] Last Admin: 09/09/16 09:03 Dose: 5 mg Senna/Docusate Sodium (Senokot S 50 Mg-8.6 Mg) 2 tab PO HS [facility] Last Admin: 09/08/16 21:25 Dose: 2 tab - Labs Labs: 09/04/16 06:30 09/08/16 06:39
--- NOTE | 2016-09-09 10:47 | CP.PCM.PN ---
Subjective - Date & Time of Evaluation Date of Evaluation: 09/09/16 Time of Evaluation: 11:30 - Subjective Subjective: Patient seen and examined during PT. Elderly , chronically ill female sitting in chair with O2 via NC and participating with PT. Denies any pain at present. Hemodynamically stable, afebrile No acute issues overnight For discharge in AM Objective - Vital Signs/Intake and Output Vital Signs (last 24 hours): Temp Pulse Resp BP Pulse Ox 97.9 F 73 18 141/65 99 09/09/16 08:18 09/09/16 08:18 09/09/16 08:18 09/09/16 09:05 09/09/16 08:18 - Medications Medications: Current Medications Acetazolamide (Diamox 250 Mg Tab) 250 mg PO BID [facility] Last Admin: 09/09/16 09:03 Dose: 250 mg Albuterol Sulfate (Albuterol 0.083% Inhal Christi (2.5 Mg/3 Ml) Ud) 2.5 mg INH RQID [facility] Last Admin: 09/09/16 07:51 Dose: 2.5 mg Albuterol Sulfate (Albuterol 0.083% Inhal Christi (2.5 Mg/3 Ml) Ud) 2.5 mg INH RQ4 PRN PRN Reason: Shortness of Breath Last Admin: 09/06/16 01:59 Dose: 2.5 mg Apixaban (Eliquis) 2.5 mg PO BID [facility] PRN Reason: Protocol Last Admin: 09/09/16 09:04 Dose: 2.5 mg Brimonidine Tartrate (Alphagan 0.2% Opht) 1 drop OS BID [facility] Last Admin: 09/09/16 09:04 Dose: 1 drop Budesonide (Pulmicort Respules) 0.5 mg IH RBID [facility] Last Admin: 09/09/16 07:51 Dose: 0.5 mg Clotrimazole (Lotrimin 1% Cream) 1 applic TOP BID [facility] Last Admin: 09/09/16 09:04 Dose: 1 applic Dorzolamide HCl (Trusopt) 1 drop OU TID [facility] Last Admin: 09/09/16 09:03 Dose: 1 drop Doxycycline Hyclate (Doryx) 100 mg PO Q12 [facility] Last Admin: 09/09/16 09:02 Dose: 100 mg Folic Acid (Folic Acid) 1 mg PO DAILY [facility] Last Admin: 09/09/16 09:03 Dose: 1 mg Furosemide (Lasix) 20 mg PO DAILY [facility] Last Admin: 09/09/16 09:05 Dose: 20 mg Lactic Acid (Lac-Hydrin 12% Lotion (225 G)) 1 applic TOP BID [facility] Last Admin: 09/09/16 09:04 Dose: 1 applic Latanoprost (Xalatan Opht) 1 drop OS HS [facility] Last Admin: 09/08/16 21:26 Dose: 1 drop Modafinil (Provigil) 100 mg PO DAILY [facility] Last Admin: 09/09/16 09:07 Dose: 100 mg Multivitamins/Minerals (Therapeutic-M Tab) 1 tab PO DAILY [facility] Last Admin: 09/09/16 09:02 Dose: 1 tab Nystatin (Nystop Topical Powder) 1 applic TOP TID [facility] Stop: 09/18/16 17:00 Last Admin: 09/09/16 09:05 Dose: 1 appl Pantoprazole Sodium (Protonix Ec Tab) 40 mg PO DAILY [facility] Last Admin: 09/09/16 09:02 Dose: 40 mg Potassium Chloride (K-Dur 20 Meq Er Tab) 20 meq PO DAILY [facility] Last Admin: 09/09/16 09:02 Dose: 20 meq Prednisone (Prednisone Tab) 5 mg PO DAILY [facility] Last Admin: 09/09/16 09:03 Dose: 5 mg Senna/Docusate Sodium (Senokot S 50 Mg-8.6 Mg) 2 tab PO HS [facility] Last Admin: 09/08/16 21:25 Dose: 2 tab - Labs Labs: 09/04/16 06:30 09/08/16 06:39 - Constitutional Appears: Non-toxic, Chronically Ill, Other (overweight) - Head Exam Head Exam: ATRAUMATIC, NORMOCEPHALIC - Eye Exam Eye Exam: EOMI, PERRL, Scleral icterus - ENT Exam ENT Exam: Mucous Membranes Moist, Normal Exam - Neck Exam Neck Exam: Normal Inspection - Respiratory Exam Respiratory Exam: Prolonged Expiratory Phase, Rales (bibasilar). absent: Wheezes - Cardiovascular Exam Cardiovascular Exam: Irregular Rhythm, RRR, +S1, +S2. absent: JVD - GI/Abdominal Exam GI & Abdominal Exam: Soft, Normal Bowel Sounds. absent: Tenderness, Rebound - Rectal Exam Rectal Exam: Deferred - Extremities Exam Additional comments: bilateral chronic skin changes secondary to stasis dermatitis - Neurological Exam Neurological Exam: Alert, Awake - Psychiatric Exam Psychiatric exam: Normal Affect - Skin Skin Exam: Warm Additional comments: bilateral LE STASIS DERMATITIS Assessment and Plan - Assessment and Plan (Free Text) Assessment: 86 yo female with history of COPD, AFib with pacemaker, CAD, HTN, GERD and Chronic Leg Edema secondary to venous stasis came in because of marked swelling and intense redness of both legs (look like red lobster).Patient transferred to TCU for PT and at present back at her baseline. Her LE edema much improved. (1) Cellulitis of lower extremity improved received 10 day course of IV Zosyn and Vanco now on Doxycycline 100mg PO q 12hrs (2) Chronic Hypercarbia CO2 down to 40 continue Bipap on low setting. cont Acetazolomide Dr Mack on consult Ordered Trilogy machine for home use and will be delivered d/c in AM (3) COPD (chronic obstructive pulmonary disease) Continue trilogy machine use duonebs on prednisone 5 mg po QD (4) Hypertension BP stable continue Lasix (5) Chronic atrial fibrillation HR controlled continue Eliquis (6) Chronic diastolic CHF (congestive heart failure) continue Lasix (7) DVT prophylaxis on Apixaban
[2016-09-09 16:36] VITALS: RESP 20
[2016-09-09 20:23] VITALS: O2SAT 99
[2016-09-09] MEDS: Latanoprost 0.005% Opht SOUTION OS SCH (21:09)
[2016-09-09] MEDS: Docusate-Senna 50 mg-8.6 mg Tab PO SCH (21:09)
[2016-09-10] MEDS: Budesonide 0.5 mg/2 ml Inhal Susp UD IH SCH (07:43)
[2016-09-10] MEDS: Albuterol 0.083% Inhal Sol (2.5 mg/3 mL) UD INH SCH ×2 (07:43→11:23)
[2016-09-10 08:15] VITALS: BP 135/61; PULSE 73; TEMP 98.6
[2016-09-10] MEDS: Dorzolamide 2% Ophth Soln OU SCH ×2 (08:53→12:23)
[2016-09-10] MEDS: Pantoprazole 40 mg EC Tab PO SCH (08:54)
[2016-09-10] MEDS: Multivitamin With Minerals Tab PO SCH (08:54)
[2016-09-10] MEDS: Potassium Chloride 20 mEq ER Tab PO SCH (08:54)
[2016-09-10] MEDS: Brimonidine 0.2% 50 DROP/5 ML BOTTLE OS SCH (09:10)
--- NOTE | 2016-09-10 11:07 | CP.PCM.PN ---
Subjective - Date & Time of Evaluation Date of Evaluation: 09/10/16 Time of Evaluation: 11:03 - Subjective Subjective: Seated in a wheelchair. Sleepy, but awakens and follows commands. Answers questions appropriately. Edema of the LE's has improved markedly. Rubor remains w/o warmth while in a seated position. Breath sounds are diminished significantly in both lungs. No audible wheezing or bronchial breathing. Plan for discharge today. Medication has been reviewed. Plan for office followup next week. DME for home use has been arranged. Objective - Vital Signs/Intake and Output Vital Signs (last 24 hours): Temp Pulse Resp BP Pulse Ox 98.6 F 73 20 135/61 99 09/10/16 08:09 09/10/16 08:09 09/10/16 08:09 09/10/16 08:54 09/10/16 08:09 - Medications Medications: Current Medications Acetazolamide (Diamox 250 Mg Tab) 250 mg PO BID [facility] Last Admin: 09/10/16 08:54 Dose: 250 mg Albuterol Sulfate (Albuterol 0.083% Inhal Christi (2.5 Mg/3 Ml) Ud) 2.5 mg INH RQID [facility] Last Admin: 09/10/16 07:43 Dose: 2.5 mg Albuterol Sulfate (Albuterol 0.083% Inhal Christi (2.5 Mg/3 Ml) Ud) 2.5 mg INH RQ4 PRN PRN Reason: Shortness of Breath Last Admin: 09/06/16 01:59 Dose: 2.5 mg Apixaban (Eliquis) 2.5 mg PO BID [facility] PRN Reason: Protocol Last Admin: 09/10/16 08:54 Dose: 2.5 mg Brimonidine Tartrate (Alphagan 0.2% Opht) 1 drop OS BID [facility] Last Admin: 09/10/16 09:10 Dose: 1 drop Budesonide (Pulmicort Respules) 0.5 mg IH RBID [facility] Last Admin: 09/10/16 07:43 Dose: 0.5 mg Clotrimazole (Lotrimin 1% Cream) 1 applic TOP BID [facility] Last Admin: 09/10/16 08:57 Dose: 1 applic Dorzolamide HCl (Trusopt) 1 drop OU TID [facility] Last Admin: 09/10/16 08:53 Dose: 1 drop Doxycycline Hyclate (Doryx) 100 mg PO Q12 [facility] Last Admin: 09/10/16 08:54 Dose: 100 mg Folic Acid (Folic Acid) 1 mg PO DAILY [facility] Last Admin: 09/10/16 08:54 Dose: 1 mg Furosemide (Lasix) 20 mg PO DAILY [facility] Last Admin: 09/10/16 08:54 Dose: 20 mg Lactic Acid (Lac-Hydrin 12% Lotion (225 G)) 1 applic TOP BID [facility] Last Admin: 09/10/16 08:57 Dose: 1 applic Latanoprost (Xalatan Opht) 1 drop OS HS [facility] Last Admin: 09/09/16 21:09 Dose: 1 drop Modafinil (Provigil) 100 mg PO DAILY [facility] Last Admin: 09/10/16 09:12 Dose: 100 mg Multivitamins/Minerals (Therapeutic-M Tab) 1 tab PO DAILY [facility] Last Admin: 09/10/16 08:54 Dose: 1 tab Nystatin (Nystop Topical Powder) 1 applic TOP TID [facility] Stop: 09/18/16 17:00 Last Admin: 09/10/16 08:56 Dose: 1 appl Pantoprazole Sodium (Protonix Ec Tab) 40 mg PO DAILY [facility] Last Admin: 09/10/16 08:54 Dose: 40 mg Potassium Chloride (K-Dur 20 Meq Er Tab) 20 meq PO DAILY [facility] Last Admin: 09/10/16 08:54 Dose: 20 meq Prednisone (Prednisone Tab) 5 mg PO DAILY [facility] Last Admin: 09/10/16 08:54 Dose: 5 mg Senna/Docusate Sodium (Senokot S 50 Mg-8.6 Mg) 2 tab PO HS [facility] Last Admin: 09/09/16 21:09 Dose: 2 tab - Labs Labs: 09/04/16 06:30 09/08/16 06:39
--- NOTE | 2016-09-10 11:27 | CP.PCM.DIS ---
Provider - Provider Date of Admission: 08/31/16 19:27 Attending physician: Jim Mock MD Primary care physician: Dr Mack Consults: Dr Mack Time Spent in preparation of Discharge (in minutes): 30 Diagnosis - Discharge Diagnosis (1) Bilateral lower leg cellulitis Status: Acute Priority: High Comment: improved with less erythema and less swelling (2) Hypercarbia Status: Chronic Comment: improved with BIPAP and Diamox (3) COPD (chronic obstructive pulmonary disease) Status: Chronic Priority: High Comment: stable and asymptomatic (4) HTN (hypertension) Status: Chronic Comment: BP stable. on Lasix (5) Chronic atrial fibrillation Status: Chronic Comment: HR controlled. continue Eliquis (6) Chronic diastolic CHF (congestive heart failure) Status: Chronic Comment: on Lasix Hospital Course - Lab Results Lab Results: Most Recent Lab Values WBC 10.9 K/uL (4.8-10.8) H 09/04/16 06:30 RBC 3.75 Mil/uL (3.80-5.20) L 09/04/16 06:30 Hgb 10.0 g/dL (12.0-16.0) L 09/04/16 06:30 Hct 35.0 % (34.0-47.0) 09/04/16 06:30 MCV 93.3 fl (81.0-99.0) D 09/04/16 06:30 MCH 26.7 pg (27.0-31.0) L 09/04/16 06:30 MCHC 28.7 g/dL (33.0-37.0) L 09/04/16 06:30 RDW 17.3 % (11.5-14.5) H 09/04/16 06:30 Plt Count 213 K/uL (130-400) 09/04/16 06:30 Sodium 142 mmol/l (132-148) 09/08/16 06:39 Potassium 3.6 MMOL/L (3.6-5.0) 09/08/16 06:39 Chloride 93 mmol/L (98-107) L 09/08/16 06:39 Carbon Dioxide 40 mmol/L (22-30) H* 09/08/16 06:39 Anion Gap 13 (10-20) 09/08/16 06:39 BUN 13 mg/dl (7-17) 09/08/16 06:39 Creatinine 0.9 mg/dL (0.7-1.2) 09/08/16 06:39 Est GFR ( Amer) > 60 09/08/16 06:39 Est GFR (Non-Af Amer) 59 09/08/16 06:39 Random Glucose 81 mg/dL (65-105) 09/08/16 06:39 Calcium 9.0 mg/dL (8.4-10.2) 09/08/16 06:39 - Hospital Course Hospital Course: 86 yo female with history of COPD, AFib with pacemaker, CAD, HTN, GERD and Chronic Leg Edema secondary to venous stasis came in because of marked swelling and intense redness of both legs (look like cooked lobster). Although patient did not complain of SOB or AMS, her PCO2 has been way up. Pt was put on IV Unasyn and low rate Bipap. She was also started on Diamox. Her condition improved. She was transferred to TCU for continuation of management and therapy. She did well and now she is ready for discharge. Discharge Exam - Head Exam Head Exam: ATRAUMATIC, NORMOCEPHALIC - Eye Exam Eye Exam: absent: Scleral icterus - ENT Exam ENT Exam: Mucous Membranes Moist - Respiratory Exam Respiratory Exam: absent: Wheezes, Respiratory Distress - Cardiovascular Exam Cardiovascular Exam: REGULAR RHYTHM, +S1, +S2 - GI/Abdominal Exam GI & Abdominal Exam: Soft. absent: Tenderness - Rectal Exam Rectal Exam: Deferred - Neurological Exam Neurological exam: Alert, Oriented x3 - Psychiatric Exam Psychiatric exam: Normal Affect - Skin Skin Exam: Dry, Intact Discharge Plan - Discharge Medications Prescriptions: acetaZOLAMIDE [Diamox 250 mg Tab] 250 mg PO BID #30 tab Albuterol 0.083% [Albuterol 0.083% Inhal Christi (2.5 mg/3 ml) UD] 2.5 mg INH RQ4 PRN #1 PRN Reason: Shortness Of Breath Albuterol 0.083% [Albuterol 0.083% Inhal Christi (2.5 mg/3 ml) UD] 2.5 mg INH RQID # 1 Budesonide [Pulmicort Respules] 0.5 mg IH RBID #1 Clotrimazole 1% Cream [Lotrimin 1% CREAM] 1 applic TOP BID #1 Doxycycline Hyclate [Doryx] 100 mg PO Q12 #14 cap Modafinil [Provigil] 100 mg PO DAILY #30 tablet Prednisone [El] 5 mg PO DAILY #14 tablet.dr - Follow Up Plan Condition: GOOD Disposition: HOME/ ROUTINE Instructions: COPD (Chronic Obstructive Pulmonary Disease) (DC), Fall Prevention (DC), BiPAP (GEN) Additional Instructions: discharge patient home. followup with Dr. Mack in 2 weeks, call for an appointment next week.
== END 2016-09-10 14:30 | disposition home health service (06) | DRG 603 ==
LOC: H.TCU 19:27
PROC: F08Z4FZ Home Management Treatment using Assistive, Adaptive, Supportive or Protective Equipment (ICD-10-PCS; 2016-08-31)
PROC: F07L6ZZ Therapeutic Exercise Treatment of Musculoskeletal System - Lower Back / Lower Extremity (ICD-10-PCS; principal; 2016-09-01)
PROC: 5A09557 Assistance with Respiratory Ventilation, Greater than 96 Consecutive Hours, Continuous Positive Airway Pressure (ICD-10-PCS; 2016-09-02)
DX: L03.115 Cellulitis of right lower limb (principal); I11.0 Hypertensive heart disease with heart failure; I48.2 Chronic atrial fibrillation; I50.32 Chronic diastolic (congestive) heart failure; J44.9 Chronic obstructive pulmonary disease, unspecified; L03.116 Cellulitis of left lower limb; Z95.0 Presence of cardiac pacemaker; I25.10 Atherosclerotic heart disease of native coronary artery without angina pectoris; K21.9 Gastro-esophageal reflux disease without esophagitis; I87.8 Other specified disorders of veins